=== PATIENT | male | born 1975 ===

== ENCOUNTER 2020-11-03 17:09 | Inpatient (IN) | payer BC ==
[~2020-11-03] VITALS: Ht 175.3 cm; Wt 81.1 kg
[2020-11-03 19:17] VITALS: BP 134/65
[2020-11-03] MEDS ORDERED: NS 1,000 ML IV SCH (19:20)
[2020-11-03] MEDS ORDERED: NS 1,000 ML IV ONE (19:20)
[2020-11-03] MEDS ORDERED: SODIUM BICARBONATE 8.4% INJ 50 ML SYRINGE IV SCH (19:20)
--- NOTE | 2020-11-03 19:48 | REPVR ---
PROCEDURE INFORMATION: Exam: XR Chest Exam date and time: 11/03/2020 7:40 PM Age: 45 years old Clinical indication: Other: Leukocytosis TECHNIQUE: Imaging protocol: XR of the chest. Views: 1 view. COMPARISON: No relevant prior studies available. FINDINGS: Lungs: Lungs are diffusely hypoexpanded. No evidence of pulmonary edema. Airspace opacities at the lateral right lung base are suspected and there may be similar ill-defined opacities at the left lung base. Pleural spaces: No pleural effusion. No pneumothorax. Heart/Mediastinum: Heart and mediastinal contours are normal, given the degree of inflation. Bones/joints: Osseous structures show no concerning abnormality. Soft tissues: No asymmetry of the extrathoracic soft tissues. IMPRESSION: Hypoexpanded lungs, with suggestion of right basilar and possibly left basilar pneumonia Electronically signed by: David Blake On 11/03/2020 19:48:09 PM
[2020-11-03 19:51] LABS: ABG BASE EXCESS -11.1 (-2.0-2.0); ABG HCO3 15.3 MEQ/L (22.0-26.0); ABG O2 SATURATION 94.3 % (95.0-99.0); ABG PARTIAL PRESSURE CO2 36.3 mmHg (35.0-45.0); ABG PARTIAL PRESSURE O2 81.9 mmHg (75.0-100.0); ABG STANDARD HCO3 15.6 MEQ/L (22.0-26.0); ABG TOTAL CO2 16.4 MEQ/L (22.0-29.0)
[2020-11-03 19:52] LABS: ABG pH (ARTERIAL) 7.243 UNITS (7.350-7.450)
[2020-11-03] MEDS ORDERED: TRAZ1TAB10 PO (19:58)
[2020-11-03] MEDS ORDERED: ROPI0.5T3 PO (19:58)
[2020-11-03] MEDS ORDERED: INSULADS INJ (19:58)
[2020-11-03] MEDS ORDERED: TREL1AER PO (19:58)
[2020-11-03] MEDS ORDERED: ATOR40TA75 PO (19:58)
[2020-11-03] MEDS ORDERED: GABA600T4 PO (19:58)
[2020-11-03] MEDS ORDERED: ESZO1TAB6 PO (19:58)
[2020-11-03] MEDS ORDERED: OXYC-517 PO (19:58)
[2020-11-03] MEDS ORDERED: INSUHUMDS SC (19:58)
[2020-11-03] MEDS ORDERED: BUPR15TA PO (19:58)
[2020-11-03] MEDS ORDERED: LEXA1TAB2 PO (19:58)
[2020-11-03] MEDS ORDERED: BACL1TAB9 PO (19:58)
[2020-11-03] MEDS ORDERED: LEVO100T5 PO (19:58)
[2020-11-03 20:00] VITALS: BP 137/69
[2020-11-03] MEDS: INSULIN REGULAR IN 0.9 % NACL 100 UNIT in IV 1 EA IV SCH ×2 (20:10)
[2020-11-03 20:12] LABS: VENOUS BASE EXCESS -13.9 (-2.0-2.0); VENOUS HCO3 13.7 MEQ/L (23.0-27.0); VENOUS O2 SATURATION 89.1 % (60.0-80.0); VENOUS PARTIAL PRESSURE CO2 37.9 mmHg (38.0-50.0); VENOUS PARTIAL PRESSURE O2 65.2 mmHg (30.0-50.0); VENOUS PH 7.175 UNITS (7.330-7.430); VENOUS STANDARD HCO3 13.6 MEQ/L; VENOUS TOTAL CO2 14.8 MEQ/L (24.0-28.0)
[2020-11-03 20:19] LABS: BASO % 0.1 % (0.0-1.0); HEMATOCRIT 34.7 % (42.0-52.0); HEMOGLOBIN 12.1 g/dl (13.5-17.5); LYMPH # 0.9 10^3/uL (1.5-5.0); LYMPH % 5.1 % (24.0-44.0); MEAN CORPUSCULAR HEMOGLOBIN 34.4 pg (27.0-33.0); MEAN CORPUSCULAR HGB CONC 34.9 g/dl (32.0-36.5); MEAN CORPUSCULAR VOLUME 98.6 fl (80.0-96.0); MONO # 0.5 10^3/uL (0.0-0.8); MONO % 2.6 % (2.0-8.0); NEUTROPHILS # 15.6 10^3/uL (1.5-8.5); NEUTROPHILS % 91.4 % (36.0-66.0); PLATELET COUNT, AUTOMATED 196 10^3/uL (150-450); RED BLOOD COUNT 3.52 10^6/uL (4.30-6.10); WHITE BLOOD COUNT 17.1 10^3/uL (4.0-10.0)
[2020-11-03] MEDS ORDERED: VANCOMYCIN HCL 500 MG in D5W MINI-BAG PLUS 100 ML IV ONE (20:25)
[2020-11-03 20:56] LABS: ACETONE/KETONE 40.71 MG/DL (<2.81); CALCIUM LEVEL 6.8 MG/DL (8.5-10.1); CREATININE FOR GFR 5.28 MG/DL (0.70-1.30); GLOMERULAR FILTRATION RATE 12.5 (>60); HEMOGLOBIN A1c 8.2 %; PHOSPHORUS LEVEL 4.2 MG/DL (2.5-4.9); POTASSIUM SERUM 3.8 MEQ/L (3.5-5.1)
[2020-11-03 21:00] VITALS: BP 148/67
[2020-11-03] MEDS ORDERED: POTASSIUM CHLORIDE INJ 30 MEQ in NS 1,000 ML IV SCH (21:05)
--- NOTE | 2020-11-03 21:06 | HPEPDOC ---
[facility] Medical History & Physical Date of Admission Nov 03, 2020 Date of Service: Nov 03, 2020 History and Physical CHIEF COMPLAINT: Transfer from [facility] for severe DKA to ICU HISTORY OF PRESENT ILLNESS: 45-year-old male type I diabetic transfer from [facility] to the ICU with severe diabetic ketoacidosis in the setting of possible aspiration pneumonia. History was obtained from patient's as well as documentation from [facility]. I'm unable to obtain history from the patient himself due to his men zbigniew status currently. [facility] requested transfer of this patient due to severe diabetic ketoacidosis he presented to [facility] traveling with his at [place] with progressively worsening nausea and vomiting and increasing confusion. According to his his nausea and vomiting started 5 days ago and have become progressively worse his sugars have been uncontrolled at home measuring high on the reader but they did not pursue medical help starting today in the morning he became progressively more confused disoriented didn't know where he was and so they decided to bring him to the hospital. At [facility] there is a large number of critical lab values and findings his initial ABG was pH 7.17 PCO2 25.9 he was found to have acute kidney injury creatinine 4.7 without history of chronic kidney disease. He was felt to have leukocytosis 18 checks x-ray was suggestive of right lower lobe opacity according to his his pain noted to choke on his food and appears to be aspirating more frequently over the past week this is new he does not have a history of pneumonia recently no history of aspiration pneumonia. According to his he does not have a history of diabetic ketoacidosis and was not admitted in the past the hospital for similar problem. At [facility] his lactate was 4.0. His anion gap was 35. His blood sugar was 1387. He was given 1 dose of cefepime and Flagyl there insulin drip was started and he was given a liter bolus of normal saline. Levemir his vitals blood pressure was 148/74. Heart rate was 96. Respirations 24. Temperature was 97. MattMclain endorsed the patient to Dr Swanson who accepted the transfer. Patient was admitted to the ICU for critical workup and management. I spoke to his Theresa and updated her as well. 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 REVIEW OF SYSTEMS: Patient is too lethargic to answer my questions unable to obtain review of systems HOME MEDICATIONS: Please see below. PHYSICAL EXAMINATION: Constitutional: Lethargic difficult to arouse wakes up briefly is able to answer a few questions and falls back asleep. Does not appear to be in distress. Protecting his airway. ENT: Sclera is nonicteric Respiratory: Lungs rhonchi bilaterally throughout lung hudson. No use of accessory muscles. Cardiovascular: Normal rate and rhythm Gastrointestinal: Abdomen is soft, non distended, non tender, BS present. Musculoskeletal: No lower extremity edema. Neurologic: No focal neurological deficit. Mental Status: A&O x1 knows his name only Skin: No visible rashes LABORATORY DATA: See below. IMAGING: See chart MICROBIOLOGY: Please see below. ASSESSMENT/PLAN 45-year-old male type I diabetic transfer from [facility] to the ICU with severe diabetic ketoacidosis in the setting of possible aspiration pneumonia. # Severe Diabetic ketoacidosis in patient with type 1 diabetes: - Admit to ICU for insulin drip per protocol. - K 3.8 initially. Start with NS with 30meqK per 1L and adjust fluids and potassium per protocol. - AG initially 35 at [facility] now improved to 21. Blood sugar initially 1387 at [facility] now 996. Monitor BMP q2h. - Transition to subq insulin and start diabetic diet per protocol. Currently NPO - s/p 2L bolus in at [facility], - Initial ABG showing pH 7.24 (improved form [facility] pH was 7.17), Trend ABGs. Give bicarb. - Possibly triggered by underlying pneumonia # Pneumonia: possibly aspiration. Per has been coughing up and aspirating more frequently over the past week no history of aspiration pneumonia. We'll treat with broad-spectrum IV vancomycin and Zosyn. Fu BCx. UCx. Sputum Cx. Incentive spirometry. Aspiration precautions. Follow-up Legionella and strep pneumo. Follow-up MRSA PCR screen. # Acute kidney injury: Cr 5.28. No history of kidney disease according to his . Likely related to his DKA. IV fluids. Renal ultrasound. I consulted nephrology and Dr. Suggs and appreciate his recommendations. Carver catheter and monitor urine output. # Hypothyroidism: Hold oral Synthroid. Half dose IV Synthroid until tolerating PO. # Restart home medications for chronic medical problems once no longer NPO. # DVT prophylaxis: Heparin Critical care time 45 minutes A Yousef Hospitalist Vital Signs Vital Signs Date Time Temp Pulse Resp B/P (MAP) Pulse Ox O2 Delivery O2 Flow Rate FiO2 11/03/20 20:00 84 22 137/69 (91) 92 Nasal Cannula 4.0 11/03/20 19:17 97.4 Laboratory Data Labs 24H Laboratory Tests 2 11/03/20 19:37: Blood Gas Bicarbonate Standard 15.6L, Arterial Blood pH 7.243*L, Arterial Blood Partial Pressure CO2 36.3, Arterial Blood Partial Pressure O2 81.9, Arterial Blood Total CO2 16.4L, Arterial Blood HCO3 15.3L, Arterial Blood Base Excess - 11.1L, Arterial Blood Oxygen Saturation 94.3L 11/03/20 19:59: Blood Gas Bicarbonate Standard 13.6, Immature Granulocyte % (Auto) 0.8, Neutrophils (%) (Auto) 91.4H, Lymphocytes (%) (Auto) 5.1L, Monocytes (%) (Auto) 2.6, Eosinophils (%) (Auto) 0.0, Basophils (%) (Auto) 0.1, Neutrophils # (Auto) 15.6H, Lymphocytes # (Auto) 0.9L, Monocytes # (Auto) 0.5, Eosinophils # (Auto) 0.0, Basophils # (Auto) 0.0, Nucleated Red Blood Cells % (auto) 0.0, Bedside Glucose Confirm (Misc) 996*H, Blood Gas Puncture Site UNKNOWN, Venous Blood pH 7.175L, Venous Blood Partial Pressure CO2 37.9L, Venous Blood Partial Pressure O2 65.2H, Venous Blood Total Carbon Dioxide 14.8L, Venous Blood HCO3 13.7L, Venous Blood Oxygen Saturation 89.1H, Venous Blood Base Excess -13.9L, Anion Gap 21H, Glomerular Filtration Rate 12.5L, Estimated Mean Plasma Glucose 189H, Hemoglobin A1c 8.2, Lactic Acid Level 2.8*H, Calcium Level 6.8L, Phosphorus Level 4.2, B-Hydroxybutyrate 40.71H CBC/BMP Laboratory Tests 11/03/20 19:59 Microbiology Microbiology 11/03/20 Blood Culture, Received Pending Home Medications Scheduled Atorvastatin Calcium (Atorvastatin Calcium) 40 Mg Tablet, 40 MG PO QPM Baclofen (Baclofen) 20 Mg Tablet, 20 MG PO QID Bupropion HCl (Wellbutrin Sr) 150 Mg Tab.sr.12h, 150 MG PO DAILY Escitalopram Oxalate (Lexapro) 20 Mg Tablet, 20 MG PO BID Eszopiclone (Eszopiclone) 3 Mg Tablet, 3 MG PO QHS Fluticasone/Umeclidin/Vilanter (Trelegy Ellipta 100-62.5-25) 1 Each Blst.w.dev, 1 PUFF PO DAILY Gabapentin (Gabapentin) 600 Mg Tablet, 600 MG PO QID Insulin Glargine (Lantus) 100 Unit/1 Ml Vial, 25 UNIT INJ BID Insulin Human Lispro (Humalog) 100 Unit/1 Ml Vial, 1 DOSE SC TID PER SLIDING SCALE Levothyroxine Sodium (Levothyroxine Sodium) 100 Mcg Tablet, 100 MCG PO DAILY Ropinirole HCl (Ropinirole HCl) 0.5 Mg Tablet, 0.5 MG PO BID Trazodone HCl (Trazodone HCl) 50 Mg Tablet, 50 MG PO QHS Allergies Coded Allergies: Penicillins (Verified Allergy, Unknown, constipation, 11/03/20) per [facility] h & P lisinopril (Verified Allergy, Unknown, renal faliure, 11/03/20) [facility] A-FIB/CHADSVASC A-FIB History Current/History of A-Fib/PAF?: No MILLER VILLEGAS MD Nov 03, 2020 21:06
[2020-11-03 21:34] LABS: VENOUS BASE EXCESS -12.3 (-2.0-2.0); VENOUS HCO3 14.8 MEQ/L (23.0-27.0); VENOUS O2 SATURATION 99.2 % (60.0-80.0); VENOUS PARTIAL PRESSURE CO2 38.2 mmHg (38.0-50.0); VENOUS PARTIAL PRESSURE O2 250.6 mmHg (30.0-50.0); VENOUS PH 7.207 UNITS (7.330-7.430); VENOUS STANDARD HCO3 14.9 MEQ/L
[2020-11-03] MEDS ORDERED: VANCOMYCIN HCL 1,000 MG, VIAL MATE ADAPTER 1 EACH in NS 250 ML IV ONE (21:45)
[2020-11-03] MEDS ORDERED: VANCOMYCIN INTERMITTENT/PULSE DOSING BY CLINICAL PHARMACIST PER DOSING PROTOCOL XX SCH (21:45)
[2020-11-03 22:00] VITALS: BP 146/66
[2020-11-03 22:02] LABS: PHOSPHORUS LEVEL 3.5 MG/DL (2.5-4.9)
--- NOTE | 2020-11-03 22:18 | REPVR ---
PROCEDURE INFORMATION: Exam: US Retroperitoneal Limited, Kidneys Exam date and time: 11/03/20 (9:10pm) Age: 45 years old Clinical indication: Acute renal failure. HOWARD. TECHNIQUE: Imaging protocol: Real-time ultrasound of the retroperitoneum with image documentation. Examination was focused on the kidneys. COMPARISON: No relevant prior studies available FINDINGS: Right kidney: No stones. No hydronephrosis. Measures 11.9 cm in length. Left kidney: No stones. No hydronephrosis. Measures 12.1 cm in length. Urinary bladder: Carver in place. Bladder not distended. Other findings: Trace ascites in the right flank area. IMPRESSION: Normal renal size, bilaterally. No hydronephrosis. No upper tract stones are seen. Carver catheter in place. Trace fluid in the right flank region. Electronically signed by: Anna Omer On 11/03/2020 22:17:22 PM
[2020-11-03 22:46] LABS: CALCIUM LEVEL 6.6 MG/DL (8.5-10.1); CREATININE FOR GFR 5.34 MG/DL (0.70-1.30); GLOMERULAR FILTRATION RATE 12.3 (>60); POTASSIUM SERUM 3.6 MEQ/L (3.5-5.1)
[2020-11-03] MEDS ORDERED: LORazepam 2 MG/ML VIAL IV STA (23:20)
[2020-11-03] MEDS ORDERED: LORazepam 2 MG/ML VIAL As Ordered ONE (23:24)
[2020-11-03] MEDS ORDERED: HEPARIN SOD (PORCINE) 5000UNITS/ML 1ML VIAL/SYRINGE As Ordered ONE (23:33)
[2020-11-03] MEDS ORDERED: MIDAZOLAM INJ 2MG/2ML VIAL (J2250 PER 1MG) As Ordered ONE (23:40)
[2020-11-03] MEDS ORDERED: MIDAZOLAM INJ 2MG/2ML VIAL (J2250 PER 1MG) IV STA (23:42)
[2020-11-04] VITALS (28 sets, daily range): BP systolic 98–161; BP diastolic 56–75
[2020-11-04 00:16] LABS: CALCIUM LEVEL 6.6 MG/DL (8.5-10.1); CREATININE FOR GFR 5.48 MG/DL (0.70-1.30); POTASSIUM SERUM 3.7 MEQ/L (3.5-5.1)
[2020-11-04] MEDS ORDERED: NS 1,000 ML IV SCH (00:35)
[2020-11-04] MEDS: PIPERACILLIN/TAZOBACTAM SOD 2.25 GM in D5W MINI-BAG PLUS 50 ML IV SCH ×5 (00:43→23:53)
[2020-11-04] MEDS: CALCIUM GLUCONATE 1,000 MG, VIAL MATE ADAPTER 1 EACH in NS 100 ML IV SCH ×2 (00:54→01:45)
[2020-11-04 01:00] LABS: CALCIUM LEVEL 6.5 MG/DL (8.5-10.1); CREATININE FOR GFR 5.64 MG/DL (0.70-1.30); GLOMERULAR FILTRATION RATE 11.6 (>60); MAGNESIUM LEVEL 2.5 MG/DL (1.8-2.4); PHOSPHORUS LEVEL 3.1 MG/DL (2.5-4.9); POTASSIUM SERUM 3.2 MEQ/L (3.5-5.1)
[2020-11-04] MEDS ORDERED: KCL 20MEQ IN STERILE WATER 100ML As Ordered ONE (01:12)
[2020-11-04] MEDS ORDERED: KCL 20MEQ IN 100ML SWI (KRUN) 20 MEQ in IV 1 EA IV ONE ×8 (01:15→10:00)
[2020-11-04] MEDS: INSULIN REGULAR IN 0.9 % NACL 100 UNIT in IV 1 EA IV SCH ×2 (02:50)
[2020-11-04 02:52] LABS: KETONE, URINE AUTO TRACE mg/dL (NEGATIVE)
[2020-11-04 03:02] LABS: CREATININE,RANDOM URINE 37.2 MG/DL
[2020-11-04 03:34] LABS: VENOUS BASE EXCESS -9.9 (-2.0-2.0); VENOUS HCO3 18.3 MEQ/L (23.0-27.0); VENOUS O2 SATURATION 94.2 % (60.0-80.0); VENOUS PARTIAL PRESSURE CO2 49.8 mmHg (38.0-50.0); VENOUS PH 7.184 UNITS (7.330-7.430); VENOUS STANDARD HCO3 16.6 MEQ/L; VENOUS TOTAL CO2 19.9 MEQ/L (24.0-28.0)
[2020-11-04] MEDS: CALCIUM GLUCONATE 1,000 MG in NS 100 ML IV SCH ×2 (04:36→05:27)
[2020-11-04 04:52] LABS: ACETONE/KETONE 1.07 MG/DL (<2.81); CREATININE FOR GFR 4.8 MG/DL (0.70-1.30); MAGNESIUM LEVEL 2.4 MG/DL (1.8-2.4); PHOSPHORUS LEVEL 2.3 MG/DL (2.5-4.9); POTASSIUM SERUM 3.7 MEQ/L (3.5-5.1); VANCOMYCIN RANDOM 18.9 UG/ML
[2020-11-04] MEDS: INSULIN IV RATE CHANGE DOCUMENTATION ML/HR XX SCH ×7 (05:08→14:20)
[2020-11-04 05:13] LABS: HEMATOCRIT 34.2 % (42.0-52.0); HEMOGLOBIN 12.6 g/dl (13.5-17.5); MEAN CORPUSCULAR HEMOGLOBIN 34.5 pg (27.0-33.0); MEAN CORPUSCULAR VOLUME 93.7 fl (80.0-96.0); PLATELET COUNT, AUTOMATED 186 10^3/uL (150-450); RED BLOOD COUNT 3.65 10^6/uL (4.30-6.10); WHITE BLOOD COUNT 12.1 10^3/uL (4.0-10.0)
[2020-11-04 05:16] LABS: MEAN CORPUSCULAR HGB CONC 36.8 g/dl (32.0-36.5)
[2020-11-04] MEDS ORDERED: SODIUM PHOSPHATE INJ 15 MMOL in D5W 250 ML IV ONE (06:00)
[2020-11-04 07:18] LABS: VENOUS BASE EXCESS -6.5 (-2.0-2.0); VENOUS HCO3 20.9 MEQ/L (23.0-27.0); VENOUS O2 SATURATION 91.6 % (60.0-80.0); VENOUS PARTIAL PRESSURE CO2 49.4 mmHg (38.0-50.0); VENOUS PARTIAL PRESSURE O2 67.9 mmHg (30.0-50.0); VENOUS PH 7.245 UNITS (7.330-7.430); VENOUS STANDARD HCO3 19.1 MEQ/L; VENOUS TOTAL CO2 22.5 MEQ/L (24.0-28.0)
[2020-11-04] MEDS ORDERED: DEXTROSE 50% 50 ML SYRINGE As Ordered ONE (07:59)
[2020-11-04] MEDS ORDERED: GLUCAGON INJ 1MG VIAL SC PRN (08:00)
[2020-11-04] MEDS ORDERED: GLUCOSE 4GM CHEW TABLET PO PRN (08:00)
[2020-11-04] MEDS ORDERED: VANCOMYCIN HCL 750 MG, VIAL MATE ADAPTER 1 EACH in NS 250 ML IV SCH (08:00)
[2020-11-04] MEDS ORDERED: D5W/0.45% SODIUM CHLORIDE 1,000 ML IV SCH (08:05)
[2020-11-04] MEDS: DEXTROSE 50% 50 ML SYRINGE IV PRN (08:23)
[2020-11-04 08:26] LABS: CALCIUM LEVEL 7.8 MG/DL (8.5-10.1); CREATININE FOR GFR 3.89 MG/DL (0.70-1.30); GLOMERULAR FILTRATION RATE 17.8 (>60); MAGNESIUM LEVEL 2.3 MG/DL (1.8-2.4); PHOSPHORUS LEVEL 2.6 MG/DL (2.5-4.9); POTASSIUM SERUM 3.7 MEQ/L (3.5-5.1)
[2020-11-04] MEDS ORDERED: CALCIUM GLUCONATE 1,000 MG in NS 100 ML IV ONE (08:30)
--- NOTE | 2020-11-04 08:30 | RO ---
OPERATIVE NOTE DATE OF OPERATION: 11/03/2020 PREOPERATIVE DIAGNOSES: 1. Diabetic ketoacidosis. 2. Acute anuric renal failure. POSTOPERATIVE DIAGNOSES: 1. Severe diabetic ketoacidosis. 2. Acute anuric renal failure. PROCEDURE: Placement of central venous catheter for dialysis access. CONSENT: For the procedure obtained from the patient's over the phone. Benefits and risks of the procedure including bleeding, infection, and nerve injury were explained to the patient, and explained that we need to emergently do a continuous veno-venous hemodiafiltration (CVVHDF) on this patient. She agreed for the dialysis catheter placement and initiation of CVVHDF. INDICATIONS FOR PROCEDURE: Severe diabetic ketoacidosis and acute anuric renal failure. SURGEON: Jennifer Suggs MD HEALTHCARE RISK CONTROL CONSULTANT: ANESTHESIA: 2% Lidocaine local DESCRIPTION OF PROCEDURE: A timeout was performed confirming the patient, location of the procedure, and the right femoral vein. The patient was prepped and draped in the usual sterile fashion. A 13-Welsh Trialysis catheter was placed in the right common femoral vein via Seldinger technique. Venous blood was aspirated from three ports and the lines were flushed with saline. Dialysis lines were locked with heparin and they were capped. COMPLICATIONS: None. ESTIMATED BLOOD LOSS: 5 mL. DISPOSITION: The patient tolerated the procedure well. CVVHDF was initiated after the procedure. Catheter to remain during the CVVHDF. The patient was agitated and he needed administration of Ativan and Versed during the procedure. [facility]
--- NOTE | 2020-11-04 08:47 | CR ---
CONSULTATION DATE: 11/04/2020 REQUESTING PHYSICIAN: Vicente Schmitz MD. CONSULTING PHYSICIAN: Jennifer Suggs MD. REASON FOR CONSULTATION: Management of acute renal failure in this patient with severe diabetic ketoacidosis. HISTORY OF PRESENT ILLNESS: Of note, history was obtained from the patient's chart and from the medical team. The patient himself is not able to provide any medical history. Julio Hollis is a 45-year-old type 1 diabetic who was transferred to our hospital from [facility] because of severe DKA and anuric acute renal failure. The patient was having worsening nausea, vomiting, and increasing confusion. The nausea and vomiting started about five days ago and progressively got worse. His sugars were uncontrolled at home and his glucose meter was reading at high; but despite all these issues, the patient did not seek any medical help. Once he started getting confused and disoriented, he was brought to [facility] where he was found to have a diabetic ketoacidosis with an initial ABG pH of 7.17. His creatinine on arrival was 4.7. He was septic with a leukocytosis of 18 and possible right lower lobe opacity on the imaging. The patient was directly admitted to [facility] ICU. His blood glucose level was 1387. Nephrology service consult was requested for patient with severe DKA and acute anuric renal failure. The patient needed my immediate attention. I came to the ICU and saw the patient on the night of 11/03/2020. The patient was very restless and agitated. He had started to wheeze with all the IV fluids that he had received. He was getting IV insulin drip. All the labs and images were reviewed. The patient's current condition was discussed with myself with his as well and further details are mentioned in my note below. PAST MEDICAL HISTORY: 1. Type 1 diabetes. 2. Diabetic neuropathy. 3. Hyperlipidemia. 4. Depression and anxiety. 5. Hypothyroidism. 6. Cleft palate in the past. PAST SURGICAL HISTORY: Status post cleft palate surgery. ALLERGIES: The patient is allergic to LISINOPRIL AND PENICILLIN. FAMILY HISTORY: Unknown family history. SOCIAL HISTORY: According to his , the patient uses marijuana. No history of other drug abuse or alcohol abuse. There is no history of smoking. REVIEW OF SYSTEMS: I was unable to review any review of systems. He was restless and agitated, and he does not follow commands. PHYSICAL EXAMINATION: GENERAL: The patient is lying in bed. Opens eyes on loud commands. VITAL SIGNS: Temperature is 97.4 degrees Fahrenheit, blood pressure 137/69, pulse 84, respiratory rate 22, saturating 92% on nasal cannula at 4 liters. HEAD/NECK: Pupils are equally round and reactive to light. Mucous membranes are dry. Neck is supple with mildly elevated JVD. CARDIOVASCULAR: S1, S2. Regular rate. No edema of the bilateral lower extremities. RESPIRATORY: The patient has wheezing bilaterally from the lung bases up to the mid lung zones. Mild inspiratory crackles are also noted. ABDOMEN: Soft. Positive bowel sounds. Nontender. GENITOURINARY: He has an indwelling Carver catheter at this time. MUSCULOSKELETAL: No clubbing or cyanosis. Pulses are 2+. OPERATIONS TECHNICIAN: The patient is obtunded and agitated at this time. SKIN: No rashes or ulcers are noted. LABORATORY REVIEW: CBC showed a WBC of 17.1, hemoglobin 12.1, platelets 196,000. Initial ABG pH was 7.23 in our hospital, pCO2 of 36, pO2 of 81, bicarb of 15.6. O2 saturation 94.3%. BMP on arrival showed sodium 125, potassium 3.8, chloride 89, bicarb 15, BUN 102, creatinine 5.2, glucose of 996, A1c of 8.2. Lactic acid was 2.8. Osmolality was 360. Calcium 6.8. Procalcitonin is pending. Beta-hydroxybutyrate is 14.7. MICROBIOLOGY: Cultures are pending. IMAGING DATA: A chest x-ray was done, which showed hyperexpanded lungs with suggestion of right basilar and possible left basilar pneumonia. Renal ultrasound was done, which showed normal size bilaterally. No hydronephrosis. Carver catheter was in place. HOME MEDICATIONS: The patient's home medications include 1. Lipitor 40 mg daily. 2. Baclofen 20 mg p.o. three times a day. 3. Wellbutrin 150 mg p.o. daily. 4. Lexapro 20 mg p.o. twice a day. 5. Zopiclone 3 mg p.o. q. h.s. 6. Trelegy Ellipta one puff p.o. daily. 7. Gabapentin 600 mg p.o. four times a day. 8. Insulin Lantus 25 units twice a day. 9. Insulin lispro sliding scale. 10. Levothyroxine 100 mcg p.o. daily. 11. Ropinirole 0.5 mg p.o. twice a day. 12. Trazodone 50 mg p.o. q. h.s. CURRENT INPATIENT MEDICATIONS: The patient's medications were all reviewed by myself and that includes multiple normal saline boluses. He was getting normal saline with Mamie Ciel running at 400 mL/hour, which I stopped because of the patient's wheezing. He has been started on Zosyn 2.25 g IV q. 6 hourly. Insulin drip is running. He was also given 1 g of vancomycin IV. Levothyroxine 50 mcg IV daily, Protonix 40 mg IV daily, and one amp of 50 mEq of IV bicarb bolus was given. ASSESSMENT: This is a 45-year-old male with a history of type 2 diabetes, depression, anxiety, and hypothyroidism admitted this time with severe sepsis, severed diabetic ketoacidosis, and acute anuric renal failure. PLAN: 1. Acute anuric renal failure. The patient has diabetic ketoacidosis. I would not wait for the patient's renal recovery. He is critically ill. I urgently got in touch with his and got consent for dialysis catheter placement. A right groin catheter was inserted with the help of staff in the intensive care unit (ICU). The procedure note is dictated separately. 2. Continuous veno-venous hemodiafiltration (CVVHDF) will be started tonight, even though the patient's blood pressures are good, but there is high risk of cerebral edema and seizures because of acute shift of electrolytes and acid base with regular HD; so CVVHDF is a safer modality in the setting of diabetic ketoacidosis. If his blood pressures allow, I would remove some fluid as well because the patient has started wheezing with all the IV fluids that we have given him. I am hopeful that with the improvement in his sepsis and diabetic ketoacidosis, the patient's renal function should recover over the next few days. 3. Diabetic ketoacidosis. The patient is getting IV fluids and IV insulin drip. I believe some infection has tipped him over into ketoacidosis. Continue the empiric antibiotic at this time. IV fluids have been stopped because the patient is anuric and was started to get wheezy. 4. Hyponatremia. The patient has pseudohyponatremia. Sodium level should get better once his glucose levels get better. 5. High anion gap metabolic acidosis including diabetic ketoacidosis, lactic acidosis, and renal failure with inability of the patient to generate any bicarb. No need for further IV bicarbonate administration. Acidosis will resolve with hemodialysis now. 6. Sepsis with possible aspiration pneumonitis. The patient has received IV fluid hydration. He is empirically on vancomycin and Zosyn that should cover for possible aspiration pneumonitis as well. 7. Hypothyroidism. Continue half the dose of oral levothyroxine as IV, which is 50 mcg IV daily. 8. History of depression and anxiety. The patient is very obtunded and lethargic. I will not give any antidepressants or any anxiety medications. He will actually need Versed p.r.n. for agitation during hemodialysis. 9. Hypocalcemia or impending hypokalemia. All the electrolytes will be repleted according to CVVHDF protocol. Thank you for involving me in the care of this patient. I shall be happy to follow the patient along with you tomorrow morning as well. The plan of care was discussed with the admitting physician, Dr. Vicente Schmitz, and with the patient's over the phone, and with the patient's nursing staff in the ICU. CRITICAL CARE TIME: The total critical care time spent in the management of this patient tonight in the intensive care unit (ICU), excluding all the procedures, was two hours. [facility]
[2020-11-04] MEDS ORDERED: SODIUM CHLORIDE 0.9% INJ 10 ML SYR IV PRN (08:55)
[2020-11-04] MEDS ORDERED: PANTOPRAZOLE 40MG VIAL (C9113 PER 1) IV SCH (09:00)
[2020-11-04] MEDS: HEPARIN SOD (PORCINE) 5000UNITS/ML 1ML VIAL/SYRINGE SC SCH ×2 (09:09→20:30)
[2020-11-04] MEDS: LEVOTHYROXINE 100MCG (0.1MG) VIAL IV SCH (09:10)
[2020-11-04] MEDS ORDERED: KCL 40MEQ IN D5/0.45NS 1000ML 1,000 ML IV SCH (09:40)
[2020-11-04] MEDS ORDERED: HALOPERIDOL 5MG/ML VIAL (J1630 PER 1) IV PRN (09:55)
[2020-11-04] MEDS ORDERED: LORazepam 2 MG/ML VIAL IV PRN (10:10)
--- NOTE | 2020-11-04 10:13 | IPNPDOC ---
Subjective Date Seen The patient was seen on 11/04/20. Subjective Chief Complaint/HPI Restless and agitated, rolling around in bed. Objective Physical Examination General Exam: Positive: Other (restless and agitated, did respond when i called his name. ) Eye Exam: Positive: PERRLA, Conjunctiva & lids normal ENT Exam: Positive: Other ENT (dried blood in the oral cavity and nares. Dried secretions int eh nose and mouth. ) Neck Exam: Positive: Supple; Negative: JVD, thyromegaly Chest Exam: Positive: Normal air movement, Other (bilateral basal crackles. 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 He was admitted for DKA, severe high anion gap metabolic acidosis, anuric HOWARD, Acute metabolic encephalopathy, aspiration pneumonia DKA sugars down to 43 this am will start on 5% dex/ 0.45 NS will resume insulin infusion as per scale. will try to maintain sugars in the 200 range. continue FS q 1 hours and basic q4 hours. Anuric HWOARD On CRRT nephro following and managing the electrolytes. Acute metabolic encephalopathy due to the DKA, extremely high sugars of over 1300 on presentation to other hospital and uremia will give haldol 2 mg iv q 6 hours prn. Morphine for pain. Aspiration pneumonia continue Zosyn MRSA pcr negative so stopped vancomycin. Follow-up Legionella and strep pneumo. Hypothyroidism: Half dose IV Synthroid until tolerating PO. COPD We will replace trelegy with DuoNebs and budesonide and Perforomist Chronic back pain and neuropathy Patient is on high-dose of baclofen at home He may go through withdrawals now that he has not had it for 3 days May have to give Precedex if remains agitated. Anxiety and depression He is on buspirone, Lexapro, trazodone, Eszopiclone at home Will need to be restarted when patient awake alert and eating orally. Plan/VTE VTE Prophylaxis Ordered?: Yes VS, I&O, 24H, Fishbone Vital Signs/I&O Vital Signs Date Time Temp Pulse Resp B/P (MAP) Pulse Ox O2 Delivery O2 Flow Rate FiO2 11/04/20 07:00 79 126/58 (80) 97 Nasal Cannula 2.0 11/04/20 04:00 98.2 26 I&O- Last 24 Hours up to 6 AM 11/04/20 06:00 Intake Total 3288 ml Output Total 1146 ml Balance 2142 ml Laboratory Data 24H LABS Laboratory Tests 2 11/03/20 19:23: Bedside Glucose (Misc Panel) > 600*H 11/03/20 19:37: Blood Gas Bicarbonate Standard 15.6L, Arterial Blood pH 7.243*L, Arterial Blood Partial Pressure CO2 36.3, Arterial Blood Partial Pressure O2 81.9, Arterial Blood Total CO2 16.4L, Arterial Blood HCO3 15.3L, Arterial Blood Base Excess - 11.1L, Arterial Blood Oxygen Saturation 94.3L 11/03/20 19:59: Blood Gas Bicarbonate Standard 13.6, Immature Granulocyte % (Auto) 0.8, Neutrophils (%) (Auto) 91.4H, Lymphocytes (%) (Auto) 5.1L, Monocytes (%) (Auto) 2.6, Eosinophils (%) (Auto) 0.0, Basophils (%) (Auto) 0.1, Neutrophils # (Auto) 15.6H, Lymphocytes # (Auto) 0.9L, Monocytes # (Auto) 0.5, Eosinophils # (Auto) 0.0, Basophils # (Auto) 0.0, Nucleated Red Blood Cells % (auto) 0.0, Bedside Glucose Confirm (Misc) 996*H, Blood Gas Puncture Site UNKNOWN, Venous Blood pH 7.175L, Venous Blood Partial Pressure CO2 37.9L, Venous Blood Partial Pressure O2 65.2H, Venous Blood Total Carbon Dioxide 14.8L, Venous Blood HCO3 13.7L, Venous Blood Oxygen Saturation 89.1H, Venous Blood Base Excess -13.9L, Anion Gap 21H, Glomerular Filtration Rate 12.5L, Estimated Mean Plasma Glucose 189H, Hemoglobin A1c 8.2, Osmolality 360H, Lactic Acid Level 2.8*H, Calcium Level 6.8L, Phosphorus Level 4.2, Procalcitonin 7.65, B-Hydroxybutyrate 40.71H 11/03/20 20:59: Bedside Glucose (Misc Panel) > 600*H 11/03/20 21:28: Blood Gas Bicarbonate Standard 14.9, Venous Blood pH 7.207L, Venous Blood Partial Pressure CO2 38.2, Venous Blood Partial Pressure O2 250.6H, Venous Blood Total Carbon Dioxide 16.0L, Venous Blood HCO3 14.8L, Venous Blood Oxygen Saturation 99.2H, Venous Blood Base Excess -12.3L, Anion Gap 21H, Glomerular Filtration Rate 12.3L, Calcium Level 6.6L, Phosphorus Level 3.5 11/03/20 22:00: Methicillin-Resist S.aureus DNA PCR NOT DETECTED 11/03/20 22:04: Bedside Glucose (Misc Panel) > 600*H 11/03/20 23:00: Bedside Glucose (Misc Panel) > 600*H 11/03/20 23:15: Anion Gap 19H, Glomerular Filtration Rate 12.0L, Calcium Level 6.6L 11/04/20 00:06: Anion Gap 13, Glomerular Filtration Rate 11.6L, Calcium Level 6.5L, Whole Blood Ionized Calcium 3.9L, Phosphorus Level 3.1, Magnesium Level 2.5H 11/04/20 00:15: Lactic Acid Followup at 4 Hours 3.0*H 11/04/20 01:04: Bedside Glucose (Misc Panel) > 600*H 11/04/20 02:06: Bedside Glucose (Misc Panel) 578*H 11/04/20 03:07: Bedside Glucose (Misc Panel) 514*H 11/04/20 03:23: Blood Gas Bicarbonate Standard 16.6, Venous Blood pH 7.184L, Venous Blood Partia l Pressure CO2 49.8, Venous Blood Partial Pressure O2 81.0H, Venous Blood Total Carbon Dioxide 19.9L, Venous Blood HCO3 18.3L, Venous Blood Oxygen Saturation 94.2H, Venous Blood Base Excess -9.9L 11/04/20 03:52: Nucleated Red Blood Cells % (auto) 0.0, Activated Partial Thromboplast Time 33.7, Anion Gap 10, Glomerular Filtration Rate 14.0L, Osmolality 322H, Calcium Level 7.0L, Phosphorus Level 2.3#L, Magnesium Level 2.4, Random Vancomycin Level 18.9, B-Hydroxybutyrate 1.07 11/04/20 04:00: Bedside Glucose (Misc Panel) 463H, Whole Blood Ionized Calcium 4.3L 11/04/20 05:06: Bedside Glucose (Misc Panel) 355H 11/04/20 06:04: Bedside Glucose (Misc Panel) 213H 11/04/20 06:59: Bedside Glucose (Misc Panel) 186H 11/04/20 07:04: Blood Gas Puncture Site UNKNOWN, Blood Gas Bicarbonate Standard 19.1, Venous Blood pH 7.245L, Venous Blood Partial Pressure CO2 49.4, Venous Blood Partial P ressure O2 67.9H, Venous Blood Total Carbon Dioxide 22.5L, Venous Blood HCO3 20.9L, Venous Blood Oxygen Saturation 91.6H, Venous Blood Base Excess -6.5L, Anion Gap 10, Glomerular Filtration Rate 17.8L, Osmolality 309H, Calcium Level 7.8L, Whole Blood Ionized Calcium 4.5, Phosphorus Level 2.6, Magnesium Level 2.3 11/04/20 07:56: Bedside Glucose (Misc Panel) 43L 11/04/20 08:01: Bedside Glucose (Misc Panel) 70 11/04/20 08:56: Bedside Glucose (Misc Panel) 119H CBC/BMP Laboratory Tests 11/03/20 19:59 11/03/20 21:28 11/03/20 23:15 11/04/20 00:06 11/04/20 03:52 11/04/20 07:04 Microbiology Microbiology 11/03/20 Blood Culture, Received Pending 11/03/20 Blood Culture, Received Pending 11/03/20 Urine Culture, Received Pending XENIA HERNANDEZ MD Nov 04, 2020 10:13
--- NOTE | 2020-11-04 10:30 | REP ---
INDICATION: Follow up Pneumonia,DKA. COMPARISON: 11/03/2020 TECHNIQUE: Portable AP view of the chest FINDINGS: The mediastinum and cardiac silhouette are stable. Patchy airspace disease involving the bilateral lung hudson (left greater than right) suggest multifocal pneumonia and correlation is required. No effusion. No pneumothorax. Skeletal structures intact. IMPRESSION: Patchy bilateral airspace disease suggesting multifocal pneumonia (left greater than right). <Electronically signed by William Barfield > 11/04/20 102
[2020-11-04] MEDS ORDERED: MORPHINE 2 MG/ML 1ML VIAL (J2270) IV ONE (11:15)
[2020-11-04] MEDS ORDERED: MORPHINE 2 MG/ML 1ML VIAL (J2270) IV PRN (11:35)
--- NOTE | 2020-11-04 11:56 | ECGEPIP ---
[facility] Test Date: 2020-11-03 Pat Name: OZZIE TREJO Department: Room: [place] [address] Gender: Male Editorial Manager: ICU : 1975 Requested By: MILLER Mendez Order Number: [id number] Reading MD: Rajinder Castillo Measurements Intervals [place] Rate: 83 P: 71 MD: 144 QRS: 67 QRSD: 82 T: 63 QT: 370 QTc: 434 Interpretive Statements Normal sinus rhythm Within normal limits. No prior ECG available for comparison at the time of interpretation. Electronically Signed on 11-04-2020 11:56:01 EDT by Rajinder Castillo
[2020-11-04 12:40] LABS: VENOUS BASE EXCESS -7.1 (-2.0-2.0); VENOUS HCO3 20.3 MEQ/L (23.0-27.0); VENOUS PARTIAL PRESSURE O2 58.6 mmHg (30.0-50.0); VENOUS PH 7.236 UNITS (7.330-7.430); VENOUS STANDARD HCO3 18.5 MEQ/L; VENOUS TOTAL CO2 21.8 MEQ/L (24.0-28.0)
[2020-11-04 12:43] LABS: CALCIUM LEVEL 7.3 MG/DL (8.5-10.1); CREATININE FOR GFR 3.32 MG/DL (0.70-1.30); GLOMERULAR FILTRATION RATE 21.3 (>60); MAGNESIUM LEVEL 2.1 MG/DL (1.8-2.4); POTASSIUM SERUM 4.5 MEQ/L (3.5-5.1)
[2020-11-04] MEDS ORDERED: INSULIN REGULAR IN 0.9 % NACL 100 UNIT in IV 1 EA IV SCH ×2 (12:43)
[2020-11-04] MEDS ORDERED: MIDAZOLAM INJ 2MG/2ML VIAL (J2250 PER 1MG) IV PRN (13:00)
[2020-11-04] MEDS ORDERED: KCL 20MEQ IN D5/0.45NS 1000ML 1,000 ML IV SCH (13:00)
[2020-11-04] MEDS ORDERED: CALCIUM GLUCONATE 1,000 MG, VIAL MATE ADAPTER 1 EACH in D5W MINI-BAG PLUS 100 ML IV ONE (14:00)
[2020-11-04 14:33] LABS: ALBUMIN 2.9 GM/DL (3.2-5.2); BILIRUBIN,DIRECT 0.4 MG/DL (0.0-0.2); BILIRUBIN,TOTAL 0.8 MG/DL (0.2-1.0)
[2020-11-04] MEDS ORDERED: SODIUM PHOSPHATE INJ 30 MMOL in D5W 500 ML IV ONE ×2 (16:00→21:00)
[2020-11-04] MEDS ORDERED: dexmedeTOMidine 200 MCG in IV 1 EA IV SCH (17:00)
[2020-11-04] MEDS ORDERED: HumaLOG INSULIN (NovoLOG) PER UNIT SC SCH (18:00)
[2020-11-04 18:02] LABS: HEMATOCRIT 31.7 % (42.0-52.0); HEMOGLOBIN 11.6 g/dl (13.5-17.5); MEAN CORPUSCULAR HGB CONC 36.6 g/dl (32.0-36.5); PLATELET COUNT, AUTOMATED 138 10^3/uL (150-450); RED BLOOD COUNT 3.41 10^6/uL (4.30-6.10); WHITE BLOOD COUNT 11.7 10^3/uL (4.0-10.0)
[2020-11-04] MEDS ORDERED: PROPOFOL 1,000 MG/100 ML VIAL As Ordered ONE (18:18)
[2020-11-04] MEDS ORDERED: SUCCINYLCHOLINE INJ 200 MG/10 ML VIAL (J0330) As Ordered ONE (18:18)
[2020-11-04 18:23] LABS: CALCIUM LEVEL 7.5 MG/DL (8.5-10.1); CREATININE FOR GFR 2.52 MG/DL (0.70-1.30); GLOMERULAR FILTRATION RATE 29.3 (>60); POTASSIUM SERUM 4.2 MEQ/L (3.5-5.1)
[2020-11-04] MEDS ORDERED: LEVEMIR (INSULIN DETEMIR) 1 UNITS/0.01ML SC ONE (18:30)
[2020-11-04] MEDS ORDERED: SUCCINYLCHOLINE INJ 200 MG/10 ML VIAL (J0330) IV STA (18:40)
[2020-11-04] MEDS ORDERED: propofoL 200 MG/20 ML VIAL IV ONE (18:40)
--- NOTE | 2020-11-04 18:47 | REP ---
INDICATION: intubation COMPARISON: None. TECHNIQUE: Portable AP view of the chest FINDINGS: Endotracheal tube 3.5 cm above the stone. Nasogastric tube courses below left hemidiaphragm. The mediastinum and cardiac silhouette are stable and within normal limits for portable technique. The lung hudson demonstrate diffuse bilateral airspace disease (left greater than right). No obvious effusion. No pneumothorax. Skeletal structures are intact. IMPRESSION: 1. Endotracheal tube and nasogastric tube in satisfactory position. 2. Bilateral airspace disease (left greater than right) similar to prior examination. <Electronically signed by William Barfield > 11/04/20 1000
[2020-11-04] MEDS: propofoL 1,000 MG in IV 1 EA IV SCH ×2 (19:09→23:19)
[2020-11-04] MEDS ORDERED: CALCIUM GLUCONATE 1,000 MG, VIAL MATE ADAPTER 1 EACH in NS 100 ML IV ONE (20:00)
[2020-11-04] MEDS ORDERED: IPRATROPIUM 0.5MG/ALBUTEROL 2.5MG INH SOL UD 3ML (DUONEB) NEB SCH (20:00)
[2020-11-04] MEDS: PANTOPRAZOLE 40MG VIAL (C9113 PER 1) IV SCH (20:30)
[2020-11-04] MEDS: CHLORHEXIDINE GLUCONATE 0.12 % 15ML UDC (PERIDEX ORAL RINSE) MT SCH (20:30)
[2020-11-04] MEDS: FORMOTEROL FUMARATE 20 MCG/2 ML INHALATION SOLUTION (PERFOROMIST) INH SCH (20:36)
[2020-11-04] MEDS: IPRATROPIUM 0.5MG/ALBUTEROL 2.5MG INH SOL UD 3ML (DUONEB) NEB SCH (20:36)
[2020-11-04] MEDS: BUDESONIDE 0.5 MG/2 ML INHALATION SUSPENSION INH SCH (20:36)
[2020-11-04 20:39] LABS: ABG BASE EXCESS -5.4 (-2.0-2.0); ABG HCO3 19.2 MEQ/L (22.0-26.0); ABG O2 SATURATION 97.6 % (95.0-99.0); ABG PARTIAL PRESSURE CO2 34.3 mmHg (35.0-45.0); ABG TOTAL CO2 20.3 MEQ/L (22.0-29.0); ABG pH (ARTERIAL) 7.366 UNITS (7.350-7.450)
--- NOTE | 2020-11-04 21:29 | IPN ---
NEPHROLOGY PROGRESS NOTE DATE: 11/04/2020 SUBJECTIVE: The patient was seen and examined at the bedside today morning in the ICU. Overnight events were noted. The patient was started on CVVHDF last night. His metabolic acidosis is resolving. His glucose levels are also better. He actually became hypoglycemic in the morning. His fluids were changed to dextrose containing fluids. Insulin drip rate is decreasing. The patient also started making urine. The patient was very restless and thrashing all over the bed so he was given Versed and he was also started on p.r.n. Morphine as well. OBJECTIVE: VITAL SIGNS: Temperature is 97.7 degrees Fahrenheit, blood pressure 146/67, pulse rate 78, respiratory rate of 22, saturating 98% on nasal cannula at 2 liters. INTAKE AND OUTPUT: Urine output recorded is around 50-60 mL an hour now since today morning. Fluid removal with CVVHDF is around 2 liters so far. Weight in the bed scale is 80.7 kg. PHYSICAL EXAMINATION: GENERAL APPEARANCE: The patient is laying in bed slightly agitated, turning around in the bed. HEAD AND NECK: Eyes are closed but he opens eyes on loud commands. Mucous membranes are moist. Neck is supple. There is no jugular venous distention. CARDIOVASCULAR: S1, S2, regular rate. EXTREMITIES: No edema of the bilateral lower extremities. RESPIRATORY: The patient has mild expiratory wheezing. Otherwise bilateral equal air entry. ABDOMEN: Soft, positive bowel sounds, nontender, no organomegaly. GENITOURINARY: He has an indwelling Carver catheter. Urine in the bag is getting more clear. MUSCULOSKELETAL: No clubbing, no cyanosis. Pulses are 2+. MARKETING SUPPORT SPECIALIST: The patient is agitated and restless. Otherwise he moves all extremities. LAB REVIEW: CBC showed a WBC count of 11.7, hemoglobin 11.6, platelet count 138. VBG done today morning showed a pH of 7.23. BMP showed sodium of 141, pot 4.2, chloride 109, bicarbonate 23, BUN 46, creatinine is 2.5. Glucose is 221. Calcium 7.5, phosphorous is 2. Magnesium is 2. Beta oxybutyrate is 1 now. Microbiology cultures are pending. IMAGING: A chest x-ray was done today morning which showed bilateral air space disease; left is greater than right. CURRENT INPATIENT MEDICATIONS: The patient's medications were all reviewed by myself. He is getting p.r.n. IV electrolytes according to CVVHDF protocol. He was getting IV D5 half normal saline with 40 mEq of KCL at 150 mL an hour. He continues to be on Vancomycin and Zosyn. No other significant change in the medications today as compared with yesterday. ASSESSMENT AND PLAN: 1. Acute renal failure - The patient is non oliguric at this time. I will continue the CVVHDF until tonight and at that time if his urine output stays stable, then CVVHDF will be stopped. 2. Severe diabetic ketoacidosis the patient's acidosis has resolved. Beta hydroxybutyrate is better now. Fluids were changed to dextrose containing fluids. Insulin requirement has decreased now. 3. Severe sepsis and bilateral multifocal pneumonia - The patient is currently on IV Zosyn and Vancomycin. A repeat chest x-ray shows bilateral alveolar disease. If his respiratory status gets worse, he might need to get intubated. I have requested the Pulmonary Service on board as well. 4. Electrolyte abnormalities including hypocalcemia, hypophosphatemia they are being corrected with CVVHDF protocol. 5. Hypothyroidism - continue current dose of Levothyroxine IV. Total critical care time spent in the management of this patient today morning in the ICU excluding all the procedures was 45 minutes.
[2020-11-04] MEDS: KCL 20MEQ IN 0.45NS 1000ML 1,000 ML IV SCH (23:53)
[2020-11-05] VITALS (22 sets, daily range): BP systolic 102–153; BP diastolic 56–85
[2020-11-05] MEDS: HumaLOG INSULIN (NovoLOG) PER UNIT SC SCH ×5 (00:17→23:32)
[2020-11-05] MEDS: IPRATROPIUM 0.5MG/ALBUTEROL 2.5MG INH SOL UD 3ML (DUONEB) NEB SCH ×6 (00:40→19:30)
[2020-11-05] MEDS: MIDAZOLAM INJ 2MG/2ML VIAL (J2250 PER 1MG) IV PRN ×4 (01:04→16:09)
[2020-11-05] MEDS ORDERED: ACETAMINOPHEN 325 MG/10.15 ML UDC NG ONE (04:50)
[2020-11-05] MEDS: PIPERACILLIN/TAZOBACTAM SOD 2.25 GM in D5W MINI-BAG PLUS 50 ML IV SCH ×2 (05:13→13:20)
[2020-11-05 05:24] LABS: ABG BASE EXCESS -3.6 (-2.0-2.0); ABG HCO3 20.2 MEQ/L (22.0-26.0); ABG O2 SATURATION 97.3 % (95.0-99.0); ABG PARTIAL PRESSURE CO2 32.1 mmHg (35.0-45.0); ABG PARTIAL PRESSURE O2 92.7 mmHg (75.0-100.0); ABG STANDARD HCO3 21.5 MEQ/L (22.0-26.0); ABG TOTAL CO2 21.2 MEQ/L (22.0-29.0); ABG pH (ARTERIAL) 7.416 UNITS (7.350-7.450)
[2020-11-05 05:31] LABS: HEMATOCRIT 28.6 % (42.0-52.0); HEMOGLOBIN 10.5 g/dl (13.5-17.5); MEAN CORPUSCULAR HEMOGLOBIN 34.2 pg (27.0-33.0); MEAN CORPUSCULAR HGB CONC 36.7 g/dl (32.0-36.5); MEAN CORPUSCULAR VOLUME 93.2 fl (80.0-96.0); PLATELET COUNT, AUTOMATED 113 10^3/uL (150-450); RED BLOOD COUNT 3.07 10^6/uL (4.30-6.10); WHITE BLOOD COUNT 8.3 10^3/uL (4.0-10.0)
[2020-11-05 05:56] LABS: MAGNESIUM LEVEL 2.1 MG/DL (1.8-2.4); PHOSPHORUS LEVEL 3.5 MG/DL (2.5-4.9)
[2020-11-05] MEDS: propofoL 1,000 MG in IV 1 EA IV SCH ×4 (06:08→23:24)
--- NOTE | 2020-11-05 06:33 | CCN ---
CRITICAL CARE NOTE DATE: 11/04/2020 START TIME: 1809 STOP TIME: 1853 SUBJECTIVE: I attended Julio Hollis here in the intensive care unit. The patient has been examined, chart reviewed. I spoke earlier in the day with Dr. Stephanie Luna and more recently with Dr. Suggs from nephrology as well as the nurse at the bedside. In essence, this is a 45-year-old gentleman new to this institution visiting from [place]. He has severe insulin dependent diabetes mellitus. He was transferred from [facility] for DK and altered mental status. He had significant renal failure, was anuric. Markedly acidotic with an initial pH of 7.23, then it was low at 7.17. Most recent blood gas shows pH 7.236, pCO2 49, pO2 58. That is a venous gas. This was done on CRRT. They have had marked difficulties with agitation and altered mental status. He has been having increasing difficulties with secretion control and worry about protecting his airway. Admission chest x-ray did suggest an aspiration pneumonitis. Due to increasing difficulties with mental status, secretion control and hypoxemia, he was electively intubated by anesthesia. Ventilator manipulations have been made by myself. OBJECTIVE: Currently he has a heart rate of 80, blood pressure 110 systolic. He does overbreathe the ventilator as he did receive succinylcholine but this is beginning to wear off. HEENT: Does show pupils do react. Sclerae clear. Oroendotracheal and orogastric tube in place. Membranes are mildly dry. Chest: Shows coarse scattered rhonchi. Expansion is symmetric. Tactile fremitus is palpable. Cardiac: Distance but regular. Peripheral pulses diminished but palpable. Abdomen: Soft with active bowel sounds. There is a right triple lumen dialysis catheter in place in the right femoral vein. Extremities: show no cyanosis or clubbing. Neurologic: He is sedate but does moves all extremities. Other laboratories show a white blood cell count this afternoon of 11.7, hemoglobin 11.6, platelet count of 138,000. Sodium 141, potassium 4.2, chloride 109, CO2 23, BUN 46, creatinine down to 2.52. Chest x-ray does show lines and tubes in good position. I do believe there are bilateral infiltrates, left greater than right. The most pressing problems requiring my immediate presence at the bedside: 1. Respiratory failure secondary to altered mental status. 2. Metabolic acidosis. 3. Renal failure. 4. Diabetes mellitus. 5. Aspiration pneumonitis. 6. Altered mental status, multifactorial. 7. Chronic pain syndrome. At this point, we will achieve sedation with propofol. He can have p.r.n. versus morphine as already ordered. Ventilator bundle is in place. Ulcer and DVT prophylaxis per primary service. He is on broad spectrum antimicrobials but now that an endotracheal tube is in place, we can get better specimens and therefore we will get a sputum for gram stain C&S. His electrolytes are being managed by nephrology. He will remain on the hospitalist service and I will assist him with his ventilatory support. Once he is off CRRT, we can obtain a CT scan of his brain to make sure there is nothing else untoward happening. At this point, we will proceed as outlined above. He remains critically ill. I left the bedside at 1854 hours. 44 minutes of critical care time at the bedside not including procedures.
[2020-11-05] MEDS: BUDESONIDE 0.5 MG/2 ML INHALATION SUSPENSION INH SCH ×2 (08:00→19:30)
[2020-11-05] MEDS: FORMOTEROL FUMARATE 20 MCG/2 ML INHALATION SOLUTION (PERFOROMIST) INH SCH ×2 (08:01→19:30)
--- NOTE | 2020-11-05 08:28 | REP ---
INDICATION: Resp failure COMPARISON: 11/03/2020, 11/04/2020 TECHNIQUE: Portable AP view of the chest FINDINGS: Endotracheal tube in satisfactory position. Nasogastric tube in satisfactory position. Dense left lower lobe/retrocardiac consolidation increased from prior examination. Small layering effusion cannot be excluded. Very subtle patchy airspace disease throughout the remainder of the left lung and right base cannot be excluded. No pneumothorax. Cardiac silhouette is within normal limits/stable. Skeletal structures are intact. IMPRESSION: Dense left lower lobe consolidation increased from prior examination. Possible small layering effusion. <Electronically signed by William Barfield > 11/05/20 0732
[2020-11-05] MEDS: CHLORHEXIDINE GLUCONATE 0.12 % 15ML UDC (PERIDEX ORAL RINSE) MT SCH ×2 (08:48→20:17)
[2020-11-05] MEDS: LEVOTHYROXINE 100MCG (0.1MG) VIAL IV SCH (08:49)
[2020-11-05] MEDS: PANTOPRAZOLE 40MG VIAL (C9113 PER 1) IV SCH ×2 (08:49→20:17)
[2020-11-05] MEDS: LEVEMIR (INSULIN DETEMIR) 1 UNITS/0.01ML SC SCH (08:50)
[2020-11-05] MEDS: HEPARIN SOD (PORCINE) 5000UNITS/ML 1ML VIAL/SYRINGE SC SCH ×2 (09:00→20:17)
[2020-11-05] MEDS: KCL 20MEQ IN 0.45NS 1000ML 1,000 ML IV SCH ×2 (09:41→20:12)
--- NOTE | 2020-11-05 10:02 | REP ---
INDICATION: altered mentation COMPARISON: None. TECHNIQUE: Axial noncontrast images from the skull base to the vertex with coronal reformations. This CT examination was performed using the following dose reduction techniques: Automated exposure control, adjustment of mA and/or kv according to the patient's size, and use of iterative reconstruction technique. FINDINGS: The ventricles, sulci, and cisterns are normal in position and appearance. Hutchinson-white differentiation is maintained. No acute intracranial hemorrhage, mass/mass effect, pathology or trauma/injury. No evidence for acute infarction. No extra-axial fluid collection. Calvarium is intact. Mucoperiosteal changes to the sinuses suggesting chronic sinus disease. IMPRESSION: No evidence for acute intracranial pathology or trauma/injury. Mild chronic sinus disease <Electronically signed by William Barfield > 11/05/20 0958
--- NOTE | 2020-11-05 10:22 | CCN ---
CRITICAL CARE NOTE DATE: 11/05/2020 START TIME: 839 STOP TIME: 917 SUBJECTIVE: I again attended Julio Hollis here in the intensive care unit. The patient has been examined, chart reviewed. He remains intubated, sedated, mechanically ventilated. I spoke with the nurse at the bedside. T max overnight 100.8, blood pressure 100-150 systolic. Heart rate generally in the 70s with a sinus mechanism. He does overbreathe the ventilator. He is beginning to make reasonable urine. He has had 800 mL out overnight. Most recent laboratories show a white blood cell count down to 8.3, hemoglobin 10.5, platelet count of 13,000. No diff this morning. Electrolytes are currently pending. Blood gases done on a PRVC rate of 15, tidal volume 450, PEEP of 5, FiO2 of 40% has a pH 7.416, pCO2 of 32.1, a pO2 of 92.7. Chest x-ray shows lines and tubes in good position. He has improved aeration and less obvious infiltrates today. OBJECTIVE: General: On exam, he does open his eyes to voice. He spontaneously moves all extremities. HEENT: Pupils do react. Sclerae are clear. Trachea is midline. Chest: Scattered rhonchi but cleared with suctioning. No obvious egophony. Cardiac: Shows no gallop. Peripheral pulses palpable. No edema. Abdomen: Soft with active bowel sounds. No convincing organomegaly or masses. Extremities: Show no obvious cyanosis or clubbing. Neurologic: As outlined above. He had significant fasciculations of the lower extremities noted last evening which are not evidence this morning but he does have bilateral upgoing toes. The most pressing problems requiring my presence at the bedside: 1. Respiratory failure requiring mechanical ventilatory support. 2. Aspiration pneumonitis. 3. Altered mental status with abnormal exam. 4. Renal failure. 5. DKA. 6. Diabetes mellitus with noncompliance. 7. Chronic pain syndrome. At this point, he has been on the ventilator less than 24 hours and I do not plan any significant weaning today especially in view of his secretions. I am concerned about the fasciculations and his upgoing toes. We will obtain a CT scan of the brain this morning as we were unable to do that while he was on CRRT. He does respond appropriately to voice and his pupils are equal and reactive and that is encouraging. For now for his aspiration, we will continue his current antimicrobials. Sputum culture is pending. He has no fever and his white count is improving. My suspicion is that until his mental status has improved, we will have difficulty with his secretions unless they clear. For now, we will continue his current antimicrobials as well as nebulized steroids as well as aggressive attention to secretions. Nutrition and his diabetes are per the primary service. Nephrology is involved. He is on CRRT. He is beginning to make reasonable urine. His creatinine is improving. At this point, he does remain critically ill. I left the bedside at 0918 hours. 38 minutes of critical care time at the bedside not including procedures. SAMPSON
--- NOTE | 2020-11-05 10:27 | IPNPDOC ---
Subjective Date Seen The patient was seen on 11/05/20. Subjective Chief Complaint/HPI Patient is intubated and sedated. Objective Physical Examination General Exam: Positive: Other (intubated and sedated) Eye Exam: Positive: Conjunctiva & lids normal Neck Exam: Positive: Supple; Negative: JVD, thyromegaly Chest Exam: Positive: Normal air movement, Other (bilateral basal crackles. 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 He was admitted for DKA, severe high anion gap metabolic acidosis, anuric HOWARD, Acute metabolic encephalopathy, aspiration pneumonia. Acute respiratory failure due to aspiration pneumonia, Intubated for poor mentation, agitation requiring sedation to control him then unable to manage secretions with increasing oxygen requirements Vent management as per pulmonary. Acute metabolic encephalopathy due to the DKA, extremely high sugars of over 1300 on presentation to other hospital , acidosis, and uremia sedated with propofol. CT head no acute issues. DKA resolved on levemir and lispro q 6 hours. FS q 6 hours. Anuric HOWARD resolving. Making good urine now. Of CRRT nephro following and managing the electrolytes. Aspiration pneumonia continue Zosyn MRSA pcr negative so stopped vancomycin. Follow-up Legionella and strep pneumo. Hypothyroidism: Half dose IV Synthroid until tolerating PO. COPD We will replace trelegy with DuoNebs and budesonide and Perforomist Chronic back pain and neuropathy Patient is on high-dose of baclofen at home He may go through withdrawals now that he has not had it for several days. Anxiety and depression He is on buspirone, Lexapro, trazodone, Eszopiclone at home Will be restarted when patient awake alert. Plan/VTE VTE Prophylaxis Ordered?: Yes VS, I&O, 24H, Fishbone Vital Signs/I&O Vital Signs Date Time Temp Pulse Resp B/P (MAP) Pulse Ox O2 Delivery O2 Flow Rate FiO2 11/05/20 06:00 100.8 87 20 125/58 (80) 93 Ventilator 40 11/04/20 16:00 6.0 I&O- Last 24 Hours up to 6 AM 11/05/20 06:00 Intake Total 3384.8 ml Output Total 4386 ml Balance -1001.2 ml Laboratory Data 24H LABS Laboratory Tests 2 11/04/20 07:56: Bedside Glucose (Misc Panel) 43L 11/04/20 08:01: Bedside Glucose (Misc Panel) 70 11/04/20 08:56: Bedside Glucose (Misc Panel) 119H 11/04/20 10:06: Bedside Glucose (Misc Panel) 99 11/04/20 11:01: Bedside Glucose (Misc Panel) 127H 11/04/20 11:50: Whole Blood Ionized Calcium 4.4L 11/04/20 11:51: Blood Gas Bicarbonate Standard 18.5, Venous Blood pH 7.236L, Venous Blood Partial Pressure CO2 49.0, Venous Blood Partial Pressure O2 58.6H, Venous Blood Total Carbon Dioxide 21.8L, Venous Blood HCO3 20.3L, Venous Blood Oxygen Saturation 88.0H, Venous Blood Base Excess -7.1L, Anion Gap 6L, Glomerular Filtration Rate 21.3L, Osmolality 311H, Calcium Level 7.3L, Phosphorus Level 2.0#L, Magnesium Level 2.1, Total Bilirubin 0.8, Direct Bilirubin 0.4H, Aspartate Amino Transf (AST/SGOT) 189H, Alanine Aminotransferase (ALT/SGPT) 113H, Alkaline Phosphatase 72, Total Protein 5.0L, Albumin 2.9L, Albumin/Globulin Ratio 1.4 11/04/20 12:08: Bedside Glucose (Misc Panel) 149H 11/04/20 13:09: Bedside Glucose (Misc Panel) 186H 11/04/20 13:16: 11/04/20 14:10: Bedside Glucose (Misc Panel) 201H 11/04/20 14:54: Ammonia < 10 11/04/20 15:04: Bedside Glucose (Misc Panel) 219H 11/04/20 16:06: Bedside Glucose (Misc Panel) 211H 11/04/20 17:12: Bedside Glucose (Misc Panel) 109H 11/04/20 17:48: Nucleated Red Blood Cells % (auto) 0.0, Activated Partial Thromboplast Time 34.5, Anion Gap 9, Glomerular Filtration Rate 29.3L, Calcium Level 7.5L, Whole Blood Ionized Calcium 4.5, Phosphorus Level 2.0L, Magnesium Level 2.0, Vancomycin Level Trough 15.4 11/04/20 18:14: Bedside Glucose (Misc Panel) 239H 11/04/20 20:32: Blood Gas Bicarbonate Standard 20.0L, Arterial Blood pH 7.366, Arterial Blood Partial Pressure CO2 34.3L, Arterial Blood Partial Pressure O2 105.0H, Arterial Blood Total CO2 20.3L, Arterial Blood HCO3 19.2L, Arterial Blood Base Excess - 5.4L, Arterial Blood Oxygen Saturation 97.6 11/05/20 00:03: Bedside Glucose (Misc Panel) 290H 11/05/20 05:11: Nucleated Red Blood Cells % (auto) 0.0, Activated Partial Thromboplast Time 32.9, Whole Blood Ionized Calcium 4.1L, Phosphorus Level 3.5#, Magnesium Level 2.1 11/05/20 05:20: Blood Gas Bicarbonate Standard 21.5L, Arterial Blood pH 7.416, Arterial Blood Partial Pressure CO2 32.1L, Arterial Blood Partial Pressure O2 92.7, Arterial Blood Total CO2 21.2L, Arterial Blood HCO3 20.2L, Arterial Blood Base Excess - 3.6L, Arterial Blood Oxygen Saturation 97.3 11/05/20 05:29: Bedside Glucose (Misc Panel) 273H CBC/BMP Laboratory Tests 11/04/20 11:51 11/04/20 17:48 11/05/20 05:11 Microbiology Microbiology 11/04/20 Gram Stain - Final, Resulted 11/04/20 Sputum Culture, Resulted Pending 11/03/20 Blood Culture - Preliminary, Resulted No growth after 24 hours . All specim... 11/03/20 Blood Culture - Preliminary, Resulted No growth after 24 hours . All specim... 11/03/20 Urine Culture - Final, Complete XENIA HERNANDEZ MD Nov 05, 2020 07:30
[2020-11-05 10:40] LABS: CALCIUM LEVEL 7.3 MG/DL (8.5-10.1); CREATININE FOR GFR 2.2 MG/DL (0.70-1.30); GLOMERULAR FILTRATION RATE 34.3 (>60); POTASSIUM SERUM 3.9 MEQ/L (3.5-5.1)
[2020-11-05] MEDS ORDERED: PIPERACILLIN/TAZOBACTAM SOD 3.375 GM in D5W MINI-BAG PLUS 50 ML IV SCH (13:00)
[2020-11-05] MEDS: ACETAMINOPHEN 325 MG/10.15 ML UDC GT PRN (17:55)
[2020-11-05] MEDS: PIPERACILLIN/TAZOBACTAM SOD 3.375 GM in D5W MINI-BAG PLUS 50 ML IV SCH ×2 (17:59→23:33)
[2020-11-05 20:36] LABS: CALCIUM LEVEL 7.7 MG/DL (8.5-10.1); CREATININE FOR GFR 2.16 MG/DL (0.70-1.30); GLOMERULAR FILTRATION RATE 35.1 (>60); POTASSIUM SERUM 3.9 MEQ/L (3.5-5.1)
--- NOTE | 2020-11-05 20:57 | IPN ---
NEPHROLOGY PROGRESS NOTE DATE: 11/05/2020 SUBJECTIVE: Patient seen and examined this morning at the bedside in the intensive care unit. He was intubated yesterday evening. He has had fever spikes. He has had improved urine output as well and continuous renal replacement therapy (CRRT) was stopped yesterday evening. OBJECTIVE: Maximum temperature (T-max) 100.8, current temperature (T-current) 100.2, pulse 95, respiratory rate 17, blood pressure 140/78, saturating 97% on 40% FiO2. INTAKE AND OUTPUT: Intake yesterday was 4 liters. Output yesterday was 2 liters of urine and 3 liters removed by continuous renal replacement therapy (CRRT). Urine output thus far today is already more than 2 liters. Weight in the bed scale today is 81 kg. GENERAL: Patient is seen today intubated and sedated and mechanically ventilated. HEENT: His pupils are reactive. Endotracheal tube is in place. HEART: Sounds are regular. There is no peripheral edema. Radial pulses are 2+. LUNGS: There is coarse symmetric air entry. He is breathing over the vent. ABDOMEN: Soft. There are hypoactive bowel sounds. GENITOURINARY: Shows an indwelling Carver catheter and Rt femoral trialysis catheter EXTREMITIES: Negative for clubbing, cyanosis or edema. NEUROLOGIC: He is sedate. LABORATORY DATA: White count 8.3, hemoglobin 10.5, platelets 113. Sodium 140, potassium 3.9, bicarbonate 23, BUN 38, creatinine 2.2, glucose 298, phosphorus 3.5, magnesium 2.1. MICROBIOLOGY: Blood cultures from November 03, 2020: No growth for 24 hours times two sets. IMAGING: CT of the head done this morning shows no acute findings. INPATIENT MEDICATIONS: He is receiving half normal saline with 20 mEq of potassium chloride at 100 mL/h. He is on: - Zosyn 3.375 grams intravenous (IV) every 6 hours - propofol infusion - Tylenol as needed - Duo-Nebs - Perforomist - heparin 5000 units subcutaneous every 12 hours - insulin - Synthroid 50 mcg IV daily - Protonix 40 mg IV twice a day PROBLEMS: 1. Nonoliguric acute renal failure in the setting of severe diabetic ketoacidosis and sepsis with pneumonia. The patient is now in renal recovery. His continuous renal replacement therapy (CRRT) was stopped yesterday evening. He has improving urine output. He is in a net negative fluid balance the past 24 hours. Given that he is not on any sort of nutrition or tube feeds, I am going to continue him on the half normal saline with potassium at this time and we can likely discontinue the Trialysis catheter in the coming 24 hours unless he needs it for central line access, et cetera. 2. Thrombocytopenia. I note that his platelet count has decreased from 196 down to 113 in the past two days. He is on heparin subcutaneous deep venous thrombosis (DVT) prophylaxis and I will defer management of that to the primary team. 3. Status post diabetic ketoacidosis (severe). His fingersticks are now mostly in the 200s. He continues on insulin managed by the primary service. He requires hypotonic fluids, but he is not suitable for dextrose-containing fluids. Hence, we are continuing him on half normal saline at this time. 4. Anemia. It is mild. We will monitor for now and get iron studies as needed. MTDD
[2020-11-06] VITALS (20 sets, daily range): BP systolic 115–137; BP diastolic 58–73
[2020-11-06] MEDS: IPRATROPIUM 0.5MG/ALBUTEROL 2.5MG INH SOL UD 3ML (DUONEB) NEB SCH ×7 (00:06→23:11)
[2020-11-06] MEDS: ACETAMINOPHEN 325 MG/10.15 ML UDC GT PRN (02:31)
[2020-11-06] MEDS: MIDAZOLAM INJ 2MG/2ML VIAL (J2250 PER 1MG) IV PRN ×5 (05:06→23:13)
[2020-11-06 05:17] LABS: HEMATOCRIT 28.4 % (42.0-52.0); HEMOGLOBIN 10.1 g/dl (13.5-17.5); MEAN CORPUSCULAR HEMOGLOBIN 34.2 pg (27.0-33.0); MEAN CORPUSCULAR HGB CONC 35.6 g/dl (32.0-36.5); MEAN CORPUSCULAR VOLUME 96.3 fl (80.0-96.0); RED BLOOD COUNT 2.95 10^6/uL (4.30-6.10)
[2020-11-06 05:32] LABS: CALCIUM LEVEL 7.7 MG/DL (8.5-10.1); CREATININE FOR GFR 1.98 MG/DL (0.70-1.30); GLOMERULAR FILTRATION RATE 38.8 (>60); POTASSIUM SERUM 3.9 MEQ/L (3.5-5.1)
[2020-11-06 05:47] LABS: PLATELET COUNT, AUTOMATED 87 10^3/uL (150-450)
[2020-11-06 05:48] LABS: ABG BASE EXCESS -1.2 (-2.0-2.0); ABG O2 SATURATION 94.4 % (95.0-99.0); ABG PARTIAL PRESSURE CO2 36.5 mmHg (35.0-45.0); ABG PARTIAL PRESSURE O2 71.6 mmHg (75.0-100.0); ABG STANDARD HCO3 23.4 MEQ/L (22.0-26.0); ABG TOTAL CO2 24.1 MEQ/L (22.0-29.0); ABG pH (ARTERIAL) 7.417 UNITS (7.350-7.450)
[2020-11-06 05:50] LABS: LYMPHOCYTES 9 % (16-44); MONOCYTES 5 % (0-5); NEUTROPHILS 86 % (28-66); PLATELET ESTIMATE DECREASED (NORMAL)
[2020-11-06] MEDS: PIPERACILLIN/TAZOBACTAM SOD 3.375 GM in D5W MINI-BAG PLUS 50 ML IV SCH ×3 (05:50→17:33)
[2020-11-06] MEDS: KCL 20MEQ IN 0.45NS 1000ML 1,000 ML IV SCH (05:50)
[2020-11-06] MEDS: HumaLOG INSULIN (NovoLOG) PER UNIT SC SCH ×3 (06:11→16:57)
[2020-11-06] MEDS: BUDESONIDE 0.5 MG/2 ML INHALATION SUSPENSION INH SCH ×2 (07:25→19:09)
[2020-11-06] MEDS: FORMOTEROL FUMARATE 20 MCG/2 ML INHALATION SOLUTION (PERFOROMIST) INH SCH ×2 (07:25→19:09)
--- NOTE | 2020-11-06 07:46 | IPN ---
PROGRESS NOTE DATE: 11/06/2020 SUBJECTIVE: The patient remains sedated, intubated, mechanically ventilated, febrile overnight with T-max of 101.1. Currently on IV Zosyn. MRSA screen negative with normal white count. Urine output of 3.49 liters yesterday, 1.025 liters since midnight. OBJECTIVE: VITALS: Temperature 101.1 maximum, current temperature 100.2, pulse 79, sinus rhythm, respiratory rate 15, blood pressure 124/63, 95% on 40% FiO2 vented. GENERAL: Sedated. HEENT: Nasogastric tube, trach tube, no tracheal deviation. Dry mucous membranes. NECK: No JVD or thyromegaly. LUNGS: Clear to auscultation. No wheezes, rhonchi or rales. HEART: S1, S2, sinus rhythm. ABDOMEN: Soft, nontender, non-distended, positive bowel sounds, Carver catheter in place with yellow colored urine. EXTREMITIES: No cyanosis, clubbing or pitting edema. NEURO: sedated. b/l babinski, muscle fasciculations Laboratory data, imaging studies, microbiology have been reviewed. ASSESSMENT/PLAN: 45-year-old male with history of dyslipidemia, depression, anxiety, hypothyroidism, restless leg, COPD not oxygen or steroid-dependent, insomnia, cleft palate repair with skin grafting, type 1 diabetes with diabetic retinopathy and chronic pain transferred from [facility] for DKA, high anion gap metabolic acidosis, aneuric acute kidney injury, acute metabolic encephalopathy and aspiration pneumonia requiring CRRT. 1. Acute respiratory failure secondary to aspiration pneumonia. Vent management per executive consultant. Currently with nasogastric tube, suctioning, head of bed elevation, being treated for aspiration pneumonia. 2. Aneuric acute kidney injury, status post CRRT, currently has adequate urine output with improving creatinine managed by nephrology. No metabolic acidosis or fluid overload at this time. No hyperkalemia. Strict I's and O's, daily weight, Carver catheter for now. 3. Acute metabolic encephalopathy secondary to DKA, acidosis, uremia. Currently sedated, intubated and mechanically ventilated. Defer to topography technician regarding weaning trial once clinically improved. 4. DKA resolved, currently on Lispro every 6 hours and Levemir insulin. Fingersticks every 6 hours. 5. Aspiration pneumonia. MRSA negative, discontinued Vancomycin. Currently on Zosyn. Pending urine Legionella antigen and Strep pneumonia. Sputum culture shows yeast-like organism, blood culture is negative. 6. Hypothyroidism, on IV Synthroid, 50% of PO dose. 7. COPD, on DuoNeb, Budesonide, Perforomist. 8. Chronic back pain. 9. B/L babinski-repeat ct head. unable to get MRI due tometal from previous palate surgeries, Abnormal creatinine will not permit CT angio Head. 10. Currently sedated. Anxiety, depression. PO meds discontinued due to NPO status with nasogastric tube. 11. DVT prophylaxis with subcutaneous Heparin, renally dosed. DISPOSITION: Weaning trial per topography technician once clinically improved. MTDD
--- NOTE | 2020-11-06 08:11 | REP ---
INDICATION: Resp failure. COMPARISON: Comparison portable chest x-ray November 05, 2020. TECHNIQUE: Portable upright AP chest radiograph. FINDINGS: There is improved aeration in the left lower lobe although a interstitial infiltrate persists in the left lower lobe. The left hemidiaphragm is now visible. There are some increased markings in the right base unchanged. Endotracheal tube is in good position at the level just below the proximal clavicles. NG tube enters the left upper quadrant.. EKG monitoring electrodes are visible . IMPRESSION: Improved aeration left lower lobe. There is an interstitial infiltrate in the left lower lobe and some increased interstitial markings persist in the right base.. <Electronically signed by Nicolas Pike > 11/06/20 [id number]
[2020-11-06] MEDS: LEVOTHYROXINE 100MCG (0.1MG) VIAL IV SCH (08:30)
[2020-11-06] MEDS: LEVEMIR (INSULIN DETEMIR) 1 UNITS/0.01ML SC SCH (08:30)
[2020-11-06] MEDS: CHLORHEXIDINE GLUCONATE 0.12 % 15ML UDC (PERIDEX ORAL RINSE) MT SCH ×2 (08:30→20:09)
[2020-11-06] MEDS: PANTOPRAZOLE 40MG VIAL (C9113 PER 1) IV SCH ×2 (08:30→20:09)
[2020-11-06] MEDS ORDERED: FLUCONAZOLE 200 MG in IV 1 EA IV SCH (10:00)
[2020-11-06] MEDS: propofoL 1,000 MG in IV 1 EA IV SCH ×2 (10:12→16:58)
[2020-11-06] MEDS: D5W 1,000 ML IV SCH ×2 (10:24→16:57)
[2020-11-06 10:57] LABS: ABG BASE EXCESS 0.2 (-2.0-2.0); ABG HCO3 24.7 MEQ/L (22.0-26.0); ABG O2 SATURATION 97.4 % (95.0-99.0); ABG PARTIAL PRESSURE CO2 39.5 mmHg (35.0-45.0); ABG PARTIAL PRESSURE O2 105.8 mmHg (75.0-100.0); ABG STANDARD HCO3 24.7 MEQ/L (22.0-26.0); ABG TOTAL CO2 25.9 MEQ/L (22.0-29.0); ABG pH (ARTERIAL) 7.414 UNITS (7.350-7.450)
[2020-11-06 12:11] LABS: MYCOPLASMA PNEUMONIAE IgG <100 U/mL (0-99); MYCOPLASMA PNEUMONIAE IgM <770 U/mL (0-769)
--- NOTE | 2020-11-06 12:58 | CCN ---
CRITICAL CARE NOTE DATE: 11/06/2020 SUBJECTIVE: The patient was seen at bedside in the ICU this morning. The patient is resting comfortably in bed without any acute distress. He is mechanically ventilated and sedated currently on PRVC with settings of tidal volume 450, PEEP 5, respirations of 15 with FiO2 of 40% satting at 98%. Overnight, he had a T-max of 101 and a net output of negative 2 liters including a 100 mL of output from his OG tube. This morning, we attempted to do a sedation vacation and patient was able to follow some commands including moving his eyebrows when instructed to open up his eyes. REVIEW OF SYSTEMS: Cannot be assessed due to patient's mentation and intubation status. OBJECTIVE: VITAL SIGNS: Temperature 100.2 rectal, pulse 79, respirations 15, blood pressure 124/63 with MAP of 83. Pulse 95% on 40% FiO2 on mode PRVC with settings of tidal volume 450, PEEP of 5, respirations 15. GENERAL: The patient is resting comfortably without any acute distress. He is able to follow some commands and raise his eyebrows when asked to open up his eyes. The patient does have spontaneous movements in all extremities. NEUROLOGIC: The patient does have five beats of clonus bilaterally. There were no fasciculations witnessed today. Positive Babinski bilaterally. No signs of tremors this morning. The patient does have episodes of tensing up during suctioning. HEENT: Sclerae clear and anicteric. Pupils are reactive to light and symmetrical. His mucous membranes are dry. There is some residual dried blood in his nasal airway. Tongue is midline. NECK: There is no tracheal deviation or mass palpated. There is no significant adenopathy appreciated. CARDIAC: Normal S1, S2. There is no murmur, gallops, or rubs appreciated. No peripheral edema. 2+ pedal pulses appreciated bilaterally. Unable to appreciate JVD PULMONARY: He does have diminished breath sounds with symmetrical expansion. I was not able to appreciate any wheezes, crackles, rhonchi, or rales. There was no dullness to percussion. There were no retractions or accessory muscle use. ABDOMEN: Soft and nondistended with normal bowel sounds. Cannot appreciate any significant organomegaly. No apparent masses or hernias appreciated. EXTREMITIES: There is no bruising, wounds, or clubbing appreciated. MUSCULOSKELETAL: The patient does not seem to have any muscle wasting. Range of motion cannot be assessed due to mentation. LABORATORY DATA: White count 10, H&H 10.1/28.4, platelets 87,000. Sodium 146, potassium 3.9, chloride 113, bicarb 26, BUN and creatinine 25/1.98. Fasting glucose 114. Magnesium 2.3. MICROBIOLOGY: Blood cultures no growth. Urine cultures no growth. Gram stain sputum culture final report moderate WBCs with few yeast-like organisms from the gram stain. Sputum culture preliminary findings show yeast-like organism (heavy). IMAGING: Head CT performed yesterday 11/05/2020, impression no evidence of acute intracranial pathology or trauma/injury. Mild chronic sinus disease. Chest x-ray from today 11/06/2020, impression improved aeration left lower lobe. There is an interstitial infiltrate in the left lower lobe and some increased interstitial markings persistent in the right base. ASSESSMENT AND PLAN: This is a 45-year-old gentleman with past medical history significant for type 1 diabetes uncontrolled on home medication regimen with diabetic neuropathy and hypothyroidism who was transferred to [facility] ([facility]) from [facility] because of severe diabetic ketoacidosis (DKA) and anuric acute renal failure. The patient was having worsening nausea and vomiting that started about five days ago, which has progressively gotten worse. He also had increased confusion and was thereafter brought to [place] to be further assessed. He was found to be in anion gap metabolic acidosis from severe DKA, as well as acute renal failure with a creatinine of 4.7. He was also found to have leukocytosis, as well as a right lower lobe opacity on radiographs suspicious for pneumonia. The patient was admitted to the ICU for further management. NEUROLOGICAL: The patient is intubated, sedated, and mechanically ventilated currently on mode pressure-regulated volume control (PRVC) with settings tidal volume 450, positive end-expiratory pressure (PEEP) of 5, respirations 15, FiO2 of 40% satting at 95%. The patient does have spontaneous movements in all extremities, as well as movement of eyebrows when asked to open his eyes. The patient does have upgoing toes bilaterally and five beats of clonus bilaterally. I did not appreciate any fasciculations or tremors; however, nursing reported muscle tensing and whole body rigidity when he was being suctioned. We did a scan of his head which did not show any intracranial abn. CARDIAC: The patient is able to maintain a mean arterial pressure (MAP) greater than 65% without any pressors. This morning, his blood pressure is 130/68. We will continue to monitor closely. PULMONARY: The patient's arterial blood gas (ABG) this morning on 11/06/2020, shows pH 7.4/36.5/72% on pressure-regulated volume control (PRVC) with settings of tidal volume 450, PEEP 5, respirations 15, FiO2 of 40% satting at 95%. We will attempt vent liberation and switch his vent mode to SIMV with pressure support with settings of tidal volume of 450, PEEP of 5, respirations 8, FiO2 of 40% with pressure support of 10. I will order for a repeat ABG an hour after vent changes. We will continue with vent bundle care with chlorhexidine mouthwash and head of the bed greater than 30 degrees. We will continue with daily chest x-rays and ABGs while intubated. The patient still has very thick and voluminous amount of secretions, and we will not attempt to extubate today as he may not be able to protect his own airways. NEPHROLOGY: The patient had a net negative of negative 2 liters with about 100 mL of bilious output from his orogastric (OG) tube. The patient is status post continuous renal replacement therapy (CRRT) day 2 now. His renal function continues to improve. BUN and creatinine today are 25/1.98. Nephrology is consulted and appreciate their recommendations. INFECTIOUS DISEASE: The patient's chest x-ray today still shows a left lower lobe opacity and was started on broad spec abx with vanco/zosyn. His MRSA was neg and he was discontinued on vancomycin, but remains on zosyn (day 2). Pt continues to spike fevers with Tmax of 101 last night. I suspected this is likely due to aspiration pneumonia as patient is producing voluminous amounts of thick secretions. His gram stain showed moderate WBCs with a few yeast-like organisms and the preliminary sputum culture also shows heavy yeast-like organisms. We will add a loading dose of 400 Diflucan and continue with 200 mg of Diflucan q.24 hours daily. The patient still has a right femoral Trialysis catheter that was placed by nephrology for CRRT. he is currently s/p day 2 from CRRT. There's no signs of infection on exam around the catheter. The line was examined and does not look infected. The patient's blood and urine cultures did not show any growth. GASTROENTEROLOGY (GI)/ENDOCRINE: The patient is status post (severe) diabetic ketoacidosis (DKA). Currently he has transitioned to subcutaneous insulin and his sugar this morning is 114. Currently he is transitioned from half-normal saline to D5W. GI prophylaxis while intubated with Protonix. Continue with his Synthroid for hypothyroidism. HEMATOLOGY: The patient does have thrombocytopenia likely in the setting of critical illness and sepsis. His platelets this morning are 87,000. I will defer to the primary team for management of his thrombocytopenia. he's on heparin for dvt ppx. Deep vein thrombosis (DVT) prophylaxis with heparin. CODE STATUS: FULL. I, Dr. Eagle Day, was physically present for the entire interview and exam. My personal exam agrees with the above. I agree with the above assessment and plan. [facility]
[2020-11-06] MEDS ORDERED: FLUCONAZOLE 400 MG in IV 1 EA IV ONE (13:00)
[2020-11-06 14:34] LABS: INR 1.04; PROTHROMBIN TIME 13.8 SECONDS (12.5-14.3)
[2020-11-06 14:35] LABS: PARTIAL THROMBOPLASTIN TIME 33.5 SECONDS (24.2-38.5)
[2020-11-06 14:38] LABS: D-DIMER QUANT 3001.43 ng/ml (<500)
--- NOTE | 2020-11-06 18:09 | IPN ---
PROGRESS NOTE DATE: 11/06/2020 SUBJECTIVE: The patient is seen and examined this morning at the bedside in the intensive care unit. He is in renal recovery. He made 3.5 liters of urine in the past 24 hours. He is mildly hypernatremic now and his IV fluids are being changed. Nursing staff reports the patient has some fasciculations, but when his sedation was weaned he did follow some simple commands. Laboratory studies show ongoing improvement in his creatinine. The patient had ongoing low grade temperatures. OBJECTIVE: VITAL SIGNS: T-max 101.5 yesterday at 7 p.m. T-current 99.2. Pulse 78, respiratory rate 17, blood pressure 137/60, saturating 96% on 35% FiO2. INTAKE AND OUTPUT: Intake yesterday 1700, urine output 3500, net negative 1.8 liters. Weight on the bed scale today 80.9 kg. GENERAL: The patient is seen intubated, sedated, and mechanically ventilated. HEENT: Pupils are reactive to light. Endotracheal tube is in place w/ secretions notes. Orogastric tube is in place. HEART: Sounds are regular. There is no peripheral edema. Radial pulses are palpable. LUNGS: Show symmetric coarse air entry bilaterally, no rales.. ABDOMEN: Soft. There are bowel sounds. GENITOURINARY: Shows indwelling Carver catheter and a right femoral Trialysis catheter. EXTREMITIES: Negative for clubbing, cyanosis, or edema. NEUROLOGIC: He is sedate. LABORATORY STUDIES: Today show sodium 146, potassium 3.9, bicarbonate 26, BUN 25, creatinine 1.9, glucose 114. Hemoglobin 10.1, platelets 87,000, repeat platelets 79,000. His sputum culture grew a yeast-like organism. IMAGING DATA: His chest x-ray today shows improved aeration of the left lower lobe. There are some increased interstitial markings in the right base. INPATIENT MEDICATIONS: I note he was started on Diflucan. I stopped his half-normal saline with potassium chloride and switched him to D5W at 150 mL/hour. He otherwise continues on IV Zosyn, propofol infusion, Pulmicort, formoterol. I note his heparin subcutaneous was stopped. His insulin was adjusted by the primary service. He continues on Synthroid and Protonix. PROBLEMS: 1. Nonoliguric acute renal failure now in renal recovery. The patient initially required continuous renal replacement therapy (CRRT) in the setting of severe diabetic ketoacidosis and sepsis. His CRRT was stopped on Thursday evening. He is in renal recovery now. He has become hypernatremic and his IV fluids are being adjusted today. His Trialysis catheter can be discontinued whenever the intensive care team no longer needs it for central line access, etc., etc. 2. Hypernatremia. It is mild and it is in the setting of renal recovery. He was almost polyuric yesterday. He made 3.5 liters of urine. It is likely due to polyuria phase of renal recovery. Half-normal saline was stopped and the patient was put on D5W at 150 mL/hour. I will repeat a BMP in the evening and reduce the rate of fluids as needed. I spoke with Dr. Borja regarding keeping an eye on his fingersticks given that he is getting D5W and was very recently in severe diabetic ketoacidosis (DKA). 3. Thrombocytopenia. Platelet counts continue to fall and primary team has stopped the heparin subcutaneous. 4. Status post diabetic ketoacidosis. His fingersticks are now mostly in the 100s and nicely controlled. He is on insulin managed by the primary service. We will keep a close eye on his glucose levels while he is getting dextrose-containing hypotonic fluid and I will cut the rate of fluids depending on his urine output. 5. Ventilator-dependent respiratory failure. I note the patient had yeast on the sputum culture. He was started on Diflucan by the primary team. His volume status is acceptable and vent management is as per .net developer. He also continues on Zosyn. He is having low grade fevers. He is being treated for aspiration pneumonia. His Fio2 requirements are stable (35%). MTDD
[2020-11-06 18:42] LABS: CALCIUM LEVEL 7.6 MG/DL (8.5-10.1); CREATININE FOR GFR 1.64 MG/DL (0.70-1.30); GLOMERULAR FILTRATION RATE 48.2 (>60); POTASSIUM SERUM 3.7 MEQ/L (3.5-5.1)
[2020-11-07] VITALS (16 sets, daily range): BP systolic 110–147; BP diastolic 57–84
[2020-11-07] MEDS: MIDAZOLAM INJ 2MG/2ML VIAL (J2250 PER 1MG) IV PRN ×3 (00:16→03:15)
[2020-11-07] MEDS: PIPERACILLIN/TAZOBACTAM SOD 3.375 GM in D5W MINI-BAG PLUS 50 ML IV SCH ×4 (00:34→18:07)
[2020-11-07] MEDS: propofoL 1,000 MG in IV 1 EA IV SCH ×2 (01:12→06:52)
[2020-11-07] MEDS: IPRATROPIUM 0.5MG/ALBUTEROL 2.5MG INH SOL UD 3ML (DUONEB) NEB SCH ×2 (03:06→07:35)
[2020-11-07 05:04] LABS: BASO % 0.2 % (0.0-1.0); EOS # 0.6 10^3/uL (0.0-0.5); EOS % 4.8 % (0.0-3.0); HEMATOCRIT 27.6 % (42.0-52.0); HEMOGLOBIN 9.3 g/dl (13.5-17.5); LYMPH # 1.1 10^3/uL (1.5-5.0); LYMPH % 9.6 % (24.0-44.0); MEAN CORPUSCULAR HEMOGLOBIN 33.2 pg (27.0-33.0); MEAN CORPUSCULAR HGB CONC 33.7 g/dl (32.0-36.5); MEAN CORPUSCULAR VOLUME 98.6 fl (80.0-96.0); MONO # 0.8 10^3/uL (0.0-0.8); MONO % 7.3 % (2.0-8.0); NEUTROPHILS # 8.9 10^3/uL (1.5-8.5); NEUTROPHILS % 77.2 % (36.0-66.0); WHITE BLOOD COUNT 11.5 10^3/uL (4.0-10.0)
[2020-11-07 05:06] LABS: PLATELET COUNT, AUTOMATED 98 10^3/uL (150-450)
[2020-11-07 05:19] LABS: CALCIUM LEVEL 7.6 MG/DL (8.5-10.1); CREATININE FOR GFR 1.52 MG/DL (0.70-1.30); GLOMERULAR FILTRATION RATE 52.6 (>60); POTASSIUM SERUM 3.7 MEQ/L (3.5-5.1)
[2020-11-07 05:52] LABS: ABG BASE EXCESS 0.4 (-2.0-2.0); ABG HCO3 25.1 MEQ/L (22.0-26.0); ABG O2 SATURATION 98.3 % (95.0-99.0); ABG PARTIAL PRESSURE CO2 40.5 mmHg (35.0-45.0); ABG STANDARD HCO3 24.9 MEQ/L (22.0-26.0); ABG TOTAL CO2 26.3 MEQ/L (22.0-29.0)
[2020-11-07] MEDS: HumaLOG INSULIN (NovoLOG) PER UNIT SC SCH ×4 (06:03→18:00)
[2020-11-07] MEDS: BUDESONIDE 0.5 MG/2 ML INHALATION SUSPENSION INH SCH ×2 (07:35→19:33)
[2020-11-07] MEDS: FORMOTEROL FUMARATE 20 MCG/2 ML INHALATION SOLUTION (PERFOROMIST) INH SCH ×2 (07:35→19:33)
[2020-11-07] MEDS ORDERED: NEOSPORIN OINT 0.9 GM PKT TOP ONE (07:50)
[2020-11-07] MEDS: PANTOPRAZOLE 40MG VIAL (C9113 PER 1) IV SCH ×2 (08:00→21:02)
[2020-11-07] MEDS: CHLORHEXIDINE GLUCONATE 0.12 % 15ML UDC (PERIDEX ORAL RINSE) MT SCH (08:00)
[2020-11-07] MEDS: LEVEMIR (INSULIN DETEMIR) 1 UNITS/0.01ML SC SCH (08:01)
[2020-11-07] MEDS: LEVOTHYROXINE 100MCG (0.1MG) VIAL IV SCH (08:02)
--- NOTE | 2020-11-07 09:07 | REP ---
INDICATION: Resp failure COMPARISON: 11/06/2020 TECHNIQUE: Portable AP view of the chest FINDINGS: Endotracheal tube and nasogastric tube are in stable satisfactory position. Areas of consolidation in the left lower lobe appears slightly more confluent. Bilateral lower lobe interstitial infiltrates are also suggested which may be slightly increased. No effusion. No pneumothorax. Cardiac silhouette is normal. IMPRESSION: Left lower lobe/retrocardiac consolidation slightly more confluent than prior examination. Bibasilar interstitial infiltrates are also suggested and possibly slightly increased. <Electronically signed by William Barfield > 11/07/20 0903
[2020-11-07 09:49] LABS: ABG BASE EXCESS 2.7 (-2.0-2.0); ABG HCO3 26.7 MEQ/L (22.0-26.0); ABG O2 SATURATION 95.9 % (95.0-99.0); ABG PARTIAL PRESSURE CO2 38.7 mmHg (35.0-45.0); ABG PARTIAL PRESSURE O2 81.2 mmHg (75.0-100.0); ABG STANDARD HCO3 26.9 MEQ/L (22.0-26.0); ABG TOTAL CO2 27.9 MEQ/L (22.0-29.0); ABG pH (ARTERIAL) 7.457 UNITS (7.350-7.450)
--- NOTE | 2020-11-07 10:19 | IPNPDOC ---
Date Seen The patient was seen on 11/07/20. Progress Note SUBJECTIVE: bled at dialysis cath site this am w about 100ml despite sandbag. awake. weaning trial today. OBJECTIVE: VITALS: see below GENERAL: awake, ET tube no pallor no icterus no distress HEENT: Nasogastric tube, ET tube tube, no tracheal deviation. Dry mucous membranes. NECK: No JVD or thyromegaly. LUNGS: Clear to auscultation. No wheezes, rhonchi or rales. HEART: S1, S2, sinus rhythm. ABDOMEN: Soft, nontender, non-distended, positive bowel sounds, Carver catheter in place with yellow colored urine. bloody right groin -pressure being applied by RN blood-soaked gown. EXTREMITIES: No cyanosis, clubbing or pitting edema. NEURO: sedated. b/l babinski, muscle fasciculations Laboratory data, imaging studies, microbiology have been reviewed. ASSESSMENT/PLAN: 45-year-old male with history of dyslipidemia, depression, anxiety, hypothyroidism, restless leg, COPD not oxygen or steroid-dependent, insomnia, cleft palate repair with skin grafting, type 1 diabetes with diabetic retinopathy and chronic pain transferred from [facility] for DKA, high anion gap metabolic acidosis, aneuric acute kidney injury, acute metabolic encephalopathy and aspiration pneumonia requiring CRRT. 1. Acute respiratory failure secondary to aspiration pneumonia. weaning trial today. Currently with nasogastric tube, suctioning, head of bed elevation, being treated for aspiration pneumonia. 2. Aneuric acute kidney injury, status post CRRT, currently has adequate urine output with improving creatinine managed by nephrology.dialysis cath removed with acute blood loss. stable urine output. 3. Acute metabolic encephalopathy secondary to DKA, acidosis, uremia. awake today . ct head negative despite fasciculations and positive b/l babinski. 4. DKA resolved, currently on Lispro every 6 hours and Levemir insulin. Fingersticks every 6 hours. weaning trial today. monitor for aspiration. swallow eval. 5. Aspiration pneumonia. MRSA negative, discontinued Vancomycin. Currently on Zosyn. Pending urine Legionella antigen and Strep pneumonia. Sputum culture shows yeast-like organism, blood culture is negative. 6. Hypothyroidism, on IV Synthroid, 50% of PO dose. once resumes po intake, change to po. 7. COPD, on DuoNeb, Budesonide, Perforomist. 8. Chronic back pain. 9. B/L babinski-repeat ct head. unable to get MRI due tometal from previous palate surgeries, Abnormal creatinine will not permit CT angio Head. 10. Acute blood loss due increased bleeding form dialysis cath which has been discontinued in right groin. RN applying pressure to stabilize. recheck hgb at 1800. 11. DVT prophylaxis with subcutaneous Heparin, renally dosed. DISPOSITION: Weaning trial per cafeteria or lunchroom checker .swallow eval. VS, I&O, 24H, Fishbone Vital Signs/I&O Vital Signs Date Time Temp Pulse Resp B/P (MAP) Pulse Ox O2 Delivery O2 Flow Rate FiO2 11/07/20 09:00 67 141/65 (90) 94 Aerosol Mask 8.0 35 11/07/20 08:00 99.8 20 I&O- Last 24 Hours up to 6 AM 11/07/20 06:00 Intake Total 2319.2 ml Output Total 2525 ml Balance -205.8 ml Laboratory Data 24H LABS Laboratory Tests 2 11/06/20 10:36: Blood Gas Bicarbonate Standard 24.7, Arterial Blood pH 7.414, Arterial Blood Partial Pressure CO2 39.5, Arterial Blood Partial Pressure O2 105.8H, Arterial Blood Total CO2 25.9, Arterial Blood HCO3 24.7, Arterial Blood Base Excess 0.2, Arterial Blood Oxygen Saturation 97.4 11/06/20 11:16: Bedside Glucose (Misc Panel) 122H 11/06/20 13:57: Prothrombin Time 13.8, Prothromb Time International Ratio 1.04, Activated Partial Thromboplast Time 33.5, Fibrinogen 540H, D-Dimer, Quantitative 3001.43H 11/06/20 16:50: Bedside Glucose (Misc Panel) 188H 11/06/20 18:02: Anion Gap 4L, Glomerular Filtration Rate 48.2L, Calcium Level 7.6L 11/06/20 23:53: Bedside Glucose (Misc Panel) 87 11/07/20 04:34: Anion Gap 6L, Glomerular Filtration Rate 52.6L, Calcium Level 7.6L, Immature Granulocyte % (Auto) 0.9, Neutrophils (%) (Auto) 77.2H, Lymphocytes (%) (Auto) 9.6L, Monocytes (%) (Auto) 7.3, Eosinophils (%) (Auto) 4.8H, Basophils (%) (Auto) 0.2, Neutrophils # (Auto) 8.9H, Lymphocytes # (Auto) 1.1L, Monocytes # (Auto) 0.8, Eosinophils # (Auto) 0.6H, Basophils # (Auto) 0.0, Nucleated Red Blood Cells % (auto) 0.0 11/07/20 05:40: Blood Gas Bicarbonate Standard 24.9, Arterial Blood pH 7.410, Arterial Blood Pa rtial Pressure CO2 40.5, Arterial Blood Partial Pressure O2 124.0H, Arterial Blood Total CO2 26.3, Arterial Blood HCO3 25.1, Arterial Blood Base Excess 0.4, Arterial Blood Oxygen Saturation 98.3 11/07/20 06:00: Bedside Glucose (Misc Panel) 165H 11/07/20 09:36: Blood Gas Bicarbonate Standard 26.9H, Arterial Blood pH 7.457H, Arterial Blood Partial Pressure CO2 38.7, Arterial Blood Partial Pressure O2 81.2, Arterial Blood Total CO2 27.9, Arterial Blood HCO3 26.7H, Arterial Blood Base Excess 2.7H, Arterial Blood Oxygen Saturation 95.9 CBC/BMP Laboratory Tests 11/06/20 13:57 11/06/20 18:02 11/07/20 04:34 Microbiology Microbiology 11/04/20 Gram Stain - Final, Resulted 11/04/20 Sputum Culture - Preliminary, Resulted Staphylococcus Aureus Yeast Like Organism 11/03/20 Blood Culture - Preliminary, Resulted No Growth after 72 hours. All specime... 11/03/20 Blood Culture - Preliminary, Resulted No Growth after 72 hours. All specime... 11/03/20 Urine Culture - Final, Complete MAYTE JONES MD Nov 07, 2020 10:18
--- NOTE | 2020-11-07 11:06 | CCN ---
CRITICAL CARE NOTE DATE: 11/07/2020 SUBJECTIVE: The patient was seen at bedside rounds in the intensive care unit (ICU) this morning. The patient is resting comfortably in bed without any acute distress. He is mechanically ventilated and sedated currently on synchronized intermittent mandatory ventilation (SIMV) with pressure support with settings of tidal volume 450, PEEP of 5, respiration 15, FiO2 of 35%, saturating at 98%. Overnight, he did not have any acute events and was afebrile overnight with Tmax 99.5 F. Over 24 hours, the patients ins and outs were intake of about 2.9 liters, output about 3 liters with a net negative of about approximately 80 mL. He had about 300 mL of bilious output from his orogastric (OG) tube. This morning, his Trialysis catheter was pulled and pressure was held over the area for five minutes. He did experience bleeding; however, a sandbag was placed over the area for more pressure and his bleeding was controlled thereafter. Again this morning, we attempted sedation vacation, and patient was able to follow commands, including opening his mouth, sticking out his tongue on command, as well as moving all extremities on command. REVIEW OF SYSTEMS: Cannot be assessed due to patient's mentation and intubation status. OBJECTIVE: VITAL SIGNS: Temperature 99.0 F, heart rate 79, respirations 19, blood pressure 122/59 with a mean arterial pressure (MAP) of 80, saturating 97% on 35% FiO2. GENERAL: Patient is resting comfortably without any acute distress. He is able to follow all commands with sedation vacation. NEUROLOGIC: The patient has two beats of clonus bilaterally, Positive upgoing toes bilaterally. No fasciculations or tremors witnessed HEENT: Sclerae clear, anicteric. Pupils are reactive to light and symmetrical. His mucous membranes are dry. There is some residual dried blood outside his nares. Tongue is midline. NECK: There is no tracheal deviation or mass palpated. No significant adenopathy appreciated. CARDIAC: Normal S1, S2. There is no murmur, gallop or rub. No peripheral edema. Pedal pulses 2+ appreciated. Unable to appreciate any jugular venous distention (JVD). PULMONARY: He has some coarse ventilator breath sounds, but I did not appreciate any wheezes, crackles, rhonchi or rales. There is no dullness to percussion. There is no traction or accessory muscle use. ABDOMEN: Soft, nondistended. Normal bowel sounds. Can not appreciate any significant organomegaly. No apparent masses or hernias appreciated. EXTREMITIES: There is no bruising, wounds or clubbing appreciated. MUSCULOSKELETAL: The patient does not seem to have any muscle wasting. Range of motion cannot be assessed due to mentation. LABORATORY FINDINGS: Patient had a white count of 11.5, hemoglobin 9.3, hematocrit 27.6, platelets 98. Sodium 140, potassium 3.7, chloride 108, bicarbonate 26, BUN 21, creatinine 1.52. MICROBIOLOGY: Blood cultures times two: No growth. Urine culture shows no growth. Gram stain sputum culture final report showed moderate white count with few yeast-like organisms from the gram stain. The sputum culture also shows yeast-like organisms (heavy). IMAGING: Chest x-ray from today 11/07/20 shows endotracheal (ET) tube and nasogastric (NG) tube in stable, satisfactory position. There is a left lower lobe/retrocardiac consolidation, slightly more confluent than prior examination. There are also bibasilar interstitial infiltrates that are slightly increased. ASSESSMENT AND PLAN: This is a 45-year-old gentleman with past medical history significant for type 1 diabetes, uncontrolled on home medication regimen, with diabetic neuropathy and hypothyroidism, who was transferred to [facility] emergency room (ER) from [facility] because of severe diabetic ketoacidosis and aneuric acute renal failure. The patient was having worsening nausea and vomiting that started about five days ago, which has progressively gotten worse. He also had increased confusion and was thereafter brought to [place] to be further assessed. He was found to be in anion gap metabolic acidosis from severe diabetic ketoacidosis (DKA), as well as acute renal failure with a creatinine of 4.7. He was also found to have leukocytosis, as well as a lower lobe opacity on radiographs, suspicious for pneumonia. The patient was admitted to the ICU for further assessment and management. 1. Neurological: The patient is intubated, sedated and mechanically ventilated, currently on synchronized intermittent mandatory ventilation (SIMV) with pressure support of 10, with settings of tidal volume 450, PEEP of 5, respiration 15, FiO2 of 35%, saturating at 97%. The patient had a sedation vacation and was able to follow all commands this morning, including opening his eyes, moving all extremities. Again, patient has upgoing toes bilaterally and had two beats of clonus bilaterally. I did not appreciate any fasciculations or tremors or seizure activity. CT head did not show any intracranial abnormalities. It's noted that [facility] has ordered an EEG for further assessment. 2. Cardiac: The patient is able to maintain a mean arterial pressure (MAP) of greater than 65 without any pressors. This morning, his blood pressure is 122/51. We will continue to monitor his blood pressure closely. 3. Pulmonary: Patient's arterial blood gas (ABG) this morning, 11/07/2020: pH 7.4/40.5/124% on FiO2 of 35% satting 96%. Patient was put on a spontaneous breathing trial and he was able to follow all commands. His secretions have lightened and we will attempt to extubate him this morning. I will order for a repeat ABG an hour after extubation. Will transition him to aerosol mask 40% to titrate his O2 to >92%. We will continue with chest x-rays as needed. 4. Nephrology: The patient had net negative urine output of about 80 mL. The patient is status post continuous renal replacement therapy (CRRT), day #3 now. His renal function continues to improve. BUN and creatinine today shows 04/03.52. Nephrology has been consulted and appreciate their recommendations. 5. Infectious disease: The patient's chest x-ray today still shows a left lower/retrocardiac opacity. His methicillin-resistant Staphylococcus aureus (MRSA) is negative. His gram stain showed moderate WBCs with yeast-like organisms and preliminary sputum culture shows heavy yeast-like organisms, for which we have started Diflucan 200 mg daily. He remains on Zosyn (day #3). Patient's right Trialysis catheter was pulled this morning with some bleeding, but with sandbag for pressure was able to be controlled. Patient still has a Carver in place with urine clear of pus. 6. Gastrointestinal/endocrine: Patient is status post (severe) diabetic ketoacidosis. Currently, he is transitioned to subcutaneous insulin with D5W for fluids. Will attempt for extubation as well as remove OG tube today. Gastrointestinal (GI) prophylaxis with Protonix. Continue Synthroid for hypothyroidism. 7. Hematology: The patient does have thrombocytopenia, likely in the setting of critical illness and sepsis. His platelets this morning did improve from yesterday, currently at 98. I will defer to primary team for management of his thrombocytopenia. He is on heparin for deep venous thrombosis (DVT) prophylaxis. 8. Deep venous thrombosis (DVT) prophylaxis with heparin. 9. CODE STATUS: FULL CODE. I, Dr. Eagle Day, was physically present for the entire interview and examination. My physical examination agrees with the above. I agree with the above assessment and plan. MTDD
[2020-11-07] MEDS ORDERED: IPRATROPIUM 0.5MG/ALBUTEROL 2.5MG INH SOL UD 3ML (DUONEB) NEB PRN (13:00)
[2020-11-07] MEDS: D5W 1,000 ML IV SCH (14:38)
[2020-11-07] MEDS: FLUCONAZOLE 200 MG in IV 1 EA IV SCH (14:39)
--- NOTE | 2020-11-07 20:14 | IPN ---
PROGRESS NOTE DATE: 11/07/2020 SUBJECTIVE: Julio is seen and examined this morning at the bedside. He was extubated today. He did not pass his swallow evaluation. He is nothing by mouth (n.p.o.). He continues on low-dose IV fluid (D5W at 40 ml an hour). He is renal recovery. He is able to tell me his name and he follows simple commands. VITAL SIGNS: Temperature 98.5, pulse 55, respiratory rate 20, blood pressure 139/72, saturating 97% on room air. Intake yesterday was 2.8 liters. Urine output yesterday was 2.9 liters. Weight in the bed scale today is 81.1 kg. General: The patient is seen lying in bed, awake and alert, oriented to person and followed simple questions and followed simple commands. Move all extremities on command. Makes eye contact. Tongue is moist. There is some dry blood around his nose. Heart sounds are bradycardiac. S1, S2. There is trace pedal edema. There is symmetric air movement. No crackle or rale. He is comfortable on room air. Abdomen is soft and nontender. Genitourinary shows that his dialysis catheter has been removed. He still has a Carver catheter. Extremities: There is some mild foot edema. There is no other edema. He moves all four extremities on commands. He is able to tell me his name and he answers correctly when I ask him to tell me how many fingers I was holding up. LABORATORY DATA: Sodium 140, potassium 3.7, bicarbonate 26, BUN 21, creatinine 1.5, glucose 161, hemoglobin 9.3, white count 11.5, platelets 98. Chest x-ray this morning shows left lower lobe consolidation. INPATIENT MEDICATIONS: He was on D5W at 40 ml an hour. He continues on IV Diflucan and IV Zosyn. His medications are unchanged as compared to yesterday with the exception that is off of sedatives. PROBLEMS: 1. Acute nonoliguric kidney injury while in renal recovery. The patient initially requires continuous renal replacement therapy (CRRT) in the setting of severe diabetic ketoacidosis and sepsis. His CRRT was stopped on Thursday evening. He has been on renal recovery since then. He is nothing by mouth (n.p.o.). He did not pass the swallow evaluation. I am continuing him on D5W at a low rate of 40 ml an hour. IV fluids can be stopped once the patient is on a diet. 2. Status post hypernatremia. Sodium level has improved nicely with hypotonic fluids. Continue D5W at 40 an hour until the patient is started on a diet. We are keeping an eye on his fingerstick as well given that he was very recently in severe diabetic ketoacidosis. 3. Thrombocytopenia. Platelet count has improved and the patient is no longer on pharmacologic deep venous thrombosis (DVT) prophylaxis. 4. Anemia. Hemoglobin is down to 9.3 and I will get iron studies.
[2020-11-07] MEDS ORDERED: KCL 20MEQ IN D5W 1000ML 1,000 ML IV SCH (21:45)
[2020-11-08] VITALS: BP 134/73
[2020-11-08] MEDS: HumaLOG INSULIN (NovoLOG) PER UNIT SC SCH ×4 (00:41→18:00)
[2020-11-08] MEDS: PIPERACILLIN/TAZOBACTAM SOD 3.375 GM in D5W MINI-BAG PLUS 50 ML IV SCH ×4 (00:41→18:56)
[2020-11-08 02:00] VITALS: BP 144/76
[2020-11-08 04:00] VITALS: BP 134/66
[2020-11-08 05:27] LABS: BASO % 0.3 % (0.0-1.0); EOS # 0.6 10^3/uL (0.0-0.5); EOS % 6.5 % (0.0-3.0); HEMATOCRIT 29.3 % (42.0-52.0); HEMOGLOBIN 9.8 g/dl (13.5-17.5); LYMPH # 1.3 10^3/uL (1.5-5.0); LYMPH % 14.6 % (24.0-44.0); MEAN CORPUSCULAR HEMOGLOBIN 33.2 pg (27.0-33.0); MEAN CORPUSCULAR HGB CONC 33.4 g/dl (32.0-36.5); MEAN CORPUSCULAR VOLUME 99.3 fl (80.0-96.0); MONO # 1.2 10^3/uL (0.0-0.8); MONO % 13.1 % (2.0-8.0); NEUTROPHILS # 5.8 10^3/uL (1.5-8.5); NEUTROPHILS % 63.4 % (36.0-66.0); PLATELET COUNT, AUTOMATED 138 10^3/uL (150-450); RED BLOOD COUNT 2.95 10^6/uL (4.30-6.10); WHITE BLOOD COUNT 9.1 10^3/uL (4.0-10.0)
[2020-11-08 06:00] LABS: BLOOD UREA NITROGEN 20 MG/DL (7-18); CALCIUM LEVEL 7.7 MG/DL (8.5-10.1); CARBON DIOXIDE LEVEL 24 MEQ/L (21-32); CHLORIDE LEVEL 105 MEQ/L (98-107); CREATININE FOR GFR 1.08 MG/DL (0.70-1.30); FERRITIN 845 NG/ML (26-388); GLOMERULAR FILTRATION RATE > 60.0 (>60); GLUCOSE, FASTING 178 MG/DL (70-100); IRON (FE) 35 UG/DL (65-175); PERCENT SATURATION 31.5 % (19.7-50.0); POTASSIUM SERUM 3.5 MEQ/L (3.5-5.1); SODIUM LEVEL 139 MEQ/L (136-145); TOTAL IRON BINDING CAPACITY 111 UG/DL (250-450)
[2020-11-08 06:08] LABS: ABG BASE EXCESS -1.5 (-2.0-2.0); ABG HCO3 19.4 MEQ/L (22.0-26.0); ABG O2 SATURATION 98.2 % (95.0-99.0); ABG PARTIAL PRESSURE CO2 22.1 mmHg (35.0-45.0); ABG PARTIAL PRESSURE O2 106.6 mmHg (75.0-100.0); ABG STANDARD HCO3 23.2 MEQ/L (22.0-26.0); ABG TOTAL CO2 20.1 MEQ/L (22.0-29.0); ABG pH (ARTERIAL) 7.561 UNITS (7.350-7.450)
[2020-11-08] MEDS: BUDESONIDE 0.5 MG/2 ML INHALATION SUSPENSION INH SCH ×2 (07:04→19:34)
[2020-11-08] MEDS: FORMOTEROL FUMARATE 20 MCG/2 ML INHALATION SOLUTION (PERFOROMIST) INH SCH ×2 (07:04→19:34)
--- NOTE | 2020-11-08 07:55 | REP ---
INDICATION: Resp failure. COMPARISON: Comparison chest x-ray November 07, 2020. TECHNIQUE: Portable upright AP chest radiograph. FINDINGS: . Today's exposure is made with the lungs in a lesser level of inspiration. In spite of this, the left lower lobe infiltrate appears a little more extensive. Increased markings are noted in the right base as well. Cardiomediastinal silhouette is unremarkable. There are bibasilar infiltrates visible on today's radiograph. IMPRESSION: Bibasilar infiltrates consistent with pneumonia. Somewhat more extensive today than on yesterday's radiograph.. <Electronically signed by Nicolas Pike > 11/08/20 0759
[2020-11-08 08:00] VITALS: BP 165/77
[2020-11-08] MEDS: LEVEMIR (INSULIN DETEMIR) 1 UNITS/0.01ML SC SCH (08:24)
[2020-11-08] MEDS: PANTOPRAZOLE 40MG VIAL (C9113 PER 1) IV SCH ×2 (08:24→20:27)
[2020-11-08] MEDS: LEVOTHYROXINE 100MCG (0.1MG) VIAL IV SCH (08:25)
--- NOTE | 2020-11-08 10:31 | IPNPDOC ---
Date Seen The patient was seen on 11/08/20. Progress Note SUBJECTIVE: Patient was successfully extubated yesterday on 11/07/2020, but failed the swallow evaluation with increased risk of aspiration. Patient has been kept nothing by mouth overnight and kept on intravenous fluids. This morning patient is anxious to go home with the at the bedside. He says that he continues to have cough productive of white sputum. Still quite weak. No nausea or vomiting. Repeat swallow eval today. Recommended mechanical soft diet but still Consistent Carbohydrate. He Is Otherwise Medically Stable. Has Had No Issues on Telemetry. Urine Output Has Been Adequate. Simpson Catheter Has Been Discontinued. He Denies Any Fever, Chills Overnight and Denies Any Chest Pain, Pressure, Tightness, or Worsening Shortness of Breath Patient is otherwise stable to be transferred to medical surgical floor. No telemetry needed OBJECTIVE: VITALS: see below GENERAL: no pallor no icterus no distress HEENT: Dry mucous membranes. NECK: No JVD or thyromegaly. LUNGS: dimished, bibasilar crackles HEART: S1, S2, sinus rhythm. ABDOMEN: Soft, nontender, non-distended, positive bowel sounds, simpson dced EXTREMITIES: No cyanosis, clubbing or pitting edema. Laboratory data, imaging studies, microbiology have been reviewed. ASSESSMENT/PLAN: 45-year-old male with history of dyslipidemia, depression, anxiety, hypothyroidism, restless leg, COPD not oxygen or steroid-dependent, insomnia, cleft palate repair with skin grafting, type 1 diabetes with diabetic retinopathy and chronic pain transferred from [facility] for DKA, high anion gap metabolic acidosis, aneuric acute kidney injury, acute metabolic encephalopathy and aspiration pneumonia requiring CRRT. 1. Acute respiratory failure secondary to aspiration pneumonia. Is still on IV Zosyn. Status post intubation, mechanical ventilation, extubated, in 11/07/2020 2. Aneuric acute kidney injury, status post CRRT, currently has adequate urine output with improving creatinine managed by nephrology.dialysis cath removed with acute blood loss. stable urine output. Simpson catheter discontinued. Still on IV fluids until resumes an oral diet 3. Acute metabolic encephalopathy secondary to DKA, acidosis, uremia. awake today . ct head negative despite fasciculations and positive b/l addie nski. 4. DKA resolved, currently on Lispro to be changed to every before meals and at bedtime once resumes an oral diet and Levemir insulin. Fingersticks every before meals at bedtime 5. Aspiration pneumonia. MRSA negative, discontinued Vancomycin. Currently on Zosyn. Pending urine Legionella antigen and Strep pneumonia. Sputum culture shows yeast-like organism, blood culture is negative. 6. Hypothyroidism, on IV Synthroid, 50% of PO dose. once resumes po intake, change to po At twice a dose of IV. 7. COPD, on DuoNeb, Budesonide, Perforomist. 8. Chronic back pain. 9. B/L babinski-repeat ct head. unable to get MRI due tometal from previous palate surgeries, Abnormal creatinine will not permit CT angio Head. 10. Acute blood loss due increased bleeding form dialysis cath which has been discontinued in right groin. Resolved 11. DVT prophylaxis with subcutaneous Heparin, renally dosed. Disposition medically stable for medical surgical floor. No telemetry needed. PT, OT. A RU consult VS, I&O, 24H, [facility] Vital Signs/I&O Vital Signs Date Time Temp Pulse Resp B/P (MAP) Pulse Ox O2 Delivery O2 Flow Rate FiO2 11/08/20 08:00 97.6 52 18 165/77 (106) 97 Room Air 11/07/20 09:00 8.0 35 I&O- Last 24 Hours up to 6 AM 11/08/20 06:00 Intake Total 1484.8 ml Output Total 2295 ml Balance -810.2 ml Laboratory Data 24H LABS Laboratory Tests 2 11/07/20 12:22: Bedside Glucose (Misc Panel) 142H 11/07/20 18:05: Bedside Glucose (Misc Panel) 141H 11/08/20 00:31: Bedside Glucose (Misc Panel) 143H 11/08/20 05:09: Immature Granulocyte % (Auto) 2.1, Neutrophils (%) (Auto) 63.4, Lymphocytes (%) (Auto) 14.6L, Monocytes (%) (Auto) 13.1H, Eosinophils (%) (Auto) 6.5H, Basophils (%) (Auto) 0.3, Neutrophils # (Auto) 5.8, Lymphocytes # (Auto) 1.3L, Monocytes # (Auto) 1.2H, Eosinophils # (Auto) 0.6H, Basophils # (Auto) 0.0, Nucleated Red Blood Cells % (auto) 0.0, Anion Gap 10, Glomerular Filtration Rate > 60.0, Calcium Level 7.7L, Iron Level 35L, Total Iron Binding Capacity 111L, Transferrin % Saturation 31.5, Ferritin 845H 11/08/20 05:42: Bedside Glucose (Misc Panel) 177H 11/08/20 05:51: Blood Gas Bicarbonate Standard 23.2, Arterial Blood pH 7.561H, Arterial Blood Partial Pressure CO2 22.1L, Arterial Blood Partial Pressure O2 106.6H, Arterial Blood Total CO2 20.1L, Arterial Blood HCO3 19.4L, Arterial Blood Base Excess - 1.5, Arterial Blood Oxygen Saturation 98.2 CBC/BMP Laboratory Tests 11/08/20 05:09 Microbiology Microbiology 11/04/20 Gram Stain - Final, Complete 11/04/20 Sputum Culture - Final, Complete Staphylococcus Aureus Yeast Like Organism 11/03/20 Blood Culture - Preliminary, Resulted No Growth after 72 hours. All specime... 11/03/20 Blood Culture - Preliminary, Resulted No Growth after 72 hours. All specime... 11/03/20 Urine Culture - Final, Complete MAYTE JONES MD Nov 08, 2020 10:26
[2020-11-08] MEDS: FLUCONAZOLE 200 MG in IV 1 EA IV SCH (13:19)
[2020-11-08 14:00] VITALS: BP 137/67
[2020-11-08] MEDS: DEXTROSE 50% 50 ML SYRINGE IV PRN (16:39)
[2020-11-08] MEDS: ACETAMINOPHEN 325 MG/10.15 ML UDC PO PRN (20:28)
[2020-11-08 22:00] VITALS: BP 153/65
[2020-11-09] MEDS: PIPERACILLIN/TAZOBACTAM SOD 3.375 GM in D5W MINI-BAG PLUS 50 ML IV SCH ×4 (00:35→18:24)
[2020-11-09] MEDS: HumaLOG INSULIN (NovoLOG) PER UNIT SC SCH ×4 (00:36→18:23)
[2020-11-09] MEDS: ACETAMINOPHEN 325 MG/10.15 ML UDC PO PRN (02:41)
[2020-11-09 06:00] VITALS: BP 148/72
[2020-11-09 06:42] LABS: HEMATOCRIT 31.6 % (42.0-52.0); HEMOGLOBIN 10.8 g/dl (13.5-17.5); MEAN CORPUSCULAR HEMOGLOBIN 33.5 pg (27.0-33.0); MEAN CORPUSCULAR HGB CONC 34.2 g/dl (32.0-36.5); MEAN CORPUSCULAR VOLUME 98.1 fl (80.0-96.0); PLATELET COUNT, AUTOMATED 224 10^3/uL (150-450); RED BLOOD COUNT 3.22 10^6/uL (4.30-6.10); WHITE BLOOD COUNT 8.4 10^3/uL (4.0-10.0)
[2020-11-09 07:00] LABS: BLOOD UREA NITROGEN 17 MG/DL (7-18); CALCIUM LEVEL 8.2 MG/DL (8.5-10.1); CARBON DIOXIDE LEVEL 21 MEQ/L (21-32); CHLORIDE LEVEL 100 MEQ/L (98-107); GLOMERULAR FILTRATION RATE > 60.0 (>60); GLUCOSE, FASTING 278 MG/DL (70-100); POTASSIUM SERUM 3.5 MEQ/L (3.5-5.1); SODIUM LEVEL 136 MEQ/L (136-145)
[2020-11-09] MEDS: BUDESONIDE 0.5 MG/2 ML INHALATION SUSPENSION INH SCH ×2 (07:04→20:00)
[2020-11-09] MEDS: FORMOTEROL FUMARATE 20 MCG/2 ML INHALATION SOLUTION (PERFOROMIST) INH SCH ×2 (07:04→20:00)
[2020-11-09 07:13] LABS: ANISOCYTOSIS 1+; EOSINOPHILS 2 % (0-3); LYMPHOCYTES 18 % (16-44); MONOCYTES 15 % (0-5); NEUTROPHILS 65 % (28-66); PLATELET ESTIMATE NORMAL (NORMAL); POIKILOCYTOSIS 1+; POLYCHROMASIA 1+
--- NOTE | 2020-11-09 07:20 | IPN ---
PROGRESS NOTE DATE: 11/08/2020 SUBJECTIVE: Patient is seen and examined this morning at the bedside. He is now on a diet (mechanical soft). He has no complaints. His renal function has recovered to baseline. He wants to go home. His IV fluids are being discontinued. He denies any shortness of breath, chest pain or nausea. OBJECTIVE: VITAL SIGNS: Temperature is 97.9, pulse is 60, respiratory rate is 16, blood pressure is 137/67, saturating 98% on room air. INTAKE AND OUTPUT: Intake yesterday was 1.4 liters, urine output yesterday was 2.2 liters. Weight on the bed scale today is not recorded. GENERAL: Patient is seen awake, alert and in no distress. Makes eye contact. HEENT: Tongue is dry. NECK: Supple. There is no jugular venous distention. HEART: Heart sounds are regular, S1 and S2. There is no significant leg edema. LUNGS: Diminished breath sounds bilaterally but no crackles or rales. ABDOMEN: Soft and nontender. His Carver catheter has been discontinued. SKIN: Warm and dry. LABORATORY DATA: Sodium 139, potassium is 3.5, bicarbonate 24, BUN 20, creatinine 1.0, glucose is 178, transferrin saturation 31%, hemoglobin 9.8. INPATIENT MEDICATIONS: I stopped his IV fluids. His remainder of medications are unchanged as compared to yesterday. Chest x-ray done this morning: Bibasilar infiltrate consistent with pneumonia. PROBLEMS: 1. Status post acute renal failure. The patient initially required CRRT in the setting of severe diabetic ketoacidosis and sepsis. CRRT was stopped within about 24 hours of initiation. He has been in renal recovery since then. Creatinine has now returned to baseline. He was started on a diet today so I am stopping the IV fluids. 2. Thrombocytopenia, platelet counts continue to improve. 3. Hypokalemia, he received IV potassium supplementation. 4. Status post acute respiratory failure secondary to aspiration pneumonia. The patient is much improved. He was extubated yesterday. He is on room air today. Antibiotics are managed by the primary service. 5. Lines. He has no longer has a dialysis catheter and he no longer has a Carver catheter. 6. Disposition: Patient has improved from a nephrology point of view. His renal injury has recovered. His creatinine is 1.0. He is now on a diet. I have stopped IV fluids. His electrolytes are acceptable. His acid base status is also acceptable. Nephrology is signing off. Please re-consult as needed.
--- NOTE | 2020-11-09 08:21 | IPN ---
PROGRESS NOTE DATE: 11/09/2020 SUBJECTIVE: According to the patient's who is present at the bedside, the patient has had no appetite and only drank water and ice chips. He denies any fever or chills overnight. He has had bradycardia, ventricular rate of 48, blood pressure 130 to 150, asymptomatic while he was sleeping. Patient has had no other issues. Overnight, urine output was 950 yesterday, input of 990. OBJECTIVE: VITAL SIGNS: Temperature 99.3, pulse 65, respiratory rate 21, blood pressure 148/72, 100% on room air. GENERAL: Awake, alert and oriented to himself, answering questions appropriately. HEENT: No pallor, icterus or jaundice. NECK: No JVD or thyromegaly. No cervical lymphadenopathy. LUNGS: Diminished with bibasilar crackles. HEART: S1 and S2, sinus rhythm. Episodes of sinus bradycardia. ABDOMEN: Soft, nontender and nondistended. Positive bowel sounds. EXTREMITIES: No cyanosis or clubbing. LABORATORY DATA/IMAGING STUDIES/MICROBIOLOGY: Have been reviewed. ASSESSMENT AND PLAN: A 45-year-old male admitted on 11/03/2020 with a history of dyslipidemia, depression, anxiety, hypothyroidism, restless legs, COPD, not oxygen or steroid dependent, cleft palate repair with skin grafting, Type 1 diabetes with retinopathy, admitted for DKA, metabolic acidosis, anuric acute kidney injury, metabolic encephalopathy and aspiration pneumonia requiring CRRT. Patient had been extubated successfully on 11/07/2020. Acute issues are: 1. Acute hypoxic respiratory failure secondary to aspiration pneumonia. 2. Aspiration pneumonia. 3. Acute kidney injury status post CRRT. 4. Acute metabolic encephalopathy secondary to uremia, DKA acidosis. 5. DKA, resolved. 6. Type 1 diabetes with neuropathy. 7. Debility. 8. COPD. 9. Hypothyroidism. 10.Chronic back pain. 11.Acute blood loss due to bleeding from the dialysis catheter which has been discontinued. PLAN: Continue with present management for now. Might transition to oral antibiotics. Once p.o. intake has improved, decreased Levemir insulin to 10 units sub q. daily until patient is taking more food, change to p.o. Protonix b.i.d. and Synthroid at 100 mcg p.o. Continue with acute rehab services.
--- NOTE | 2020-11-09 08:58 | REP ---
INDICATION: Resp failure COMPARISON: 11/08/2020 TECHNIQUE: Portable AP view of the chest FINDINGS: The mediastinum and cardiac silhouette are stable and within normal limits for portable technique. The lung hudson again demonstrate perihilar and bibasilar airspace disease (left greater than right). Skeletal structures are intact. IMPRESSION: Bibasilar infiltrates (left greater than right). No significant change from prior examination. <Electronically signed by William Barfield > 11/09/20 [id number]
[2020-11-09] MEDS: LEVEMIR (INSULIN DETEMIR) 1 UNITS/0.01ML SC SCH (09:50)
[2020-11-09] MEDS: PANTOPRAZOLE 40MG TAB (PROTONIX) PO SCH (09:50)
[2020-11-09] MEDS: LEVOTHYROXINE 100MCG TABLET (0.1MG) PO SCH (09:51)
[2020-11-09] MEDS ORDERED: GI COCKTAIL 50ML BTL(HYOSCYAMINE/MAALOX/LIDOCAINE VISCOUS)(1:3:1) PO ONE (10:00)
[2020-11-09] MEDS: SUCRALFATE 1 GM TAB PO SCH ×3 (13:05→21:16)
[2020-11-09] MEDS: FLUCONAZOLE 200 MG in IV 1 EA IV SCH (13:07)
[2020-11-09 14:00] VITALS: BP 136/61
[2020-11-09] MEDS ORDERED: GI COCKTAIL 50ML BTL(HYOSCYAMINE/MAALOX/LIDOCAINE VISCOUS)(1:3:1) PO PRN (14:00)
[2020-11-09 21:39] VITALS: BP 123/59
[2020-11-09 22:00] VITALS: BP 123/59
[2020-11-10] MEDS: PIPERACILLIN/TAZOBACTAM SOD 3.375 GM in D5W MINI-BAG PLUS 50 ML IV SCH ×3 (00:09→12:30)
[2020-11-10 06:22] VITALS: BP 138/68
[2020-11-10] MEDS: LEVOTHYROXINE 100MCG TABLET (0.1MG) PO SCH (06:24)
[2020-11-10] MEDS: HumaLOG INSULIN (NovoLOG) PER UNIT SC SCH ×3 (07:00→12:30)
[2020-11-10 07:05] LABS: BASO # 0.1 10^3/uL (0.0-0.2); BASO % 0.6 % (0.0-1.0); EOS # 0.4 10^3/uL (0.0-0.5); EOS % 4.8 % (0.0-3.0); HEMATOCRIT 31.1 % (42.0-52.0); HEMOGLOBIN 10.8 g/dl (13.5-17.5); LYMPH # 1.7 10^3/uL (1.5-5.0); LYMPH % 19.7 % (24.0-44.0); MEAN CORPUSCULAR HEMOGLOBIN 33.8 pg (27.0-33.0); MEAN CORPUSCULAR HGB CONC 34.7 g/dl (32.0-36.5); MEAN CORPUSCULAR VOLUME 97.2 fl (80.0-96.0); MONO # 1.1 10^3/uL (0.0-0.8); MONO % 13.4 % (2.0-8.0); NEUTROPHILS # 4.9 10^3/uL (1.5-8.5); NEUTROPHILS % 56.8 % (36.0-66.0); PLATELET COUNT, AUTOMATED 306 10^3/uL (150-450); WHITE BLOOD COUNT 8.5 10^3/uL (4.0-10.0)
[2020-11-10] MEDS: BUDESONIDE 0.5 MG/2 ML INHALATION SUSPENSION INH SCH (07:22)
[2020-11-10] MEDS: FORMOTEROL FUMARATE 20 MCG/2 ML INHALATION SOLUTION (PERFOROMIST) INH SCH (07:22)
[2020-11-10] MEDS ORDERED: DIFL150T PO (07:29)
[2020-11-10] MEDS ORDERED: SUCR1TA PO (07:29)
[2020-11-10] MEDS ORDERED: LEVO750T13 PO (07:29)
[2020-11-10] MEDS ORDERED: PANT40TA29 PO (07:29)
[2020-11-10] MEDS ORDERED: BACI1CAP PO (07:29)
[2020-11-10 07:30] LABS: BLOOD UREA NITROGEN 14 MG/DL (7-18); CALCIUM LEVEL 7.9 MG/DL (8.5-10.1); CARBON DIOXIDE LEVEL 25 MEQ/L (21-32); CHLORIDE LEVEL 99 MEQ/L (98-107); CREATININE FOR GFR 0.86 MG/DL (0.70-1.30); GLOMERULAR FILTRATION RATE > 60.0 (>60); GLUCOSE, FASTING 196 MG/DL (70-100); POTASSIUM SERUM 3.4 MEQ/L (3.5-5.1); SODIUM LEVEL 135 MEQ/L (136-145)
[2020-11-10] MEDS ORDERED: DOXY-350 PO (07:39)
--- NOTE | 2020-11-10 07:56 | REP ---
INDICATION: Resp failure COMPARISON: 11/09/2020 TECHNIQUE: Portable AP view of the chest FINDINGS: The mediastinum and cardiac silhouette are stable and within normal limits for portable technique. Right hemithorax is now clear. Left lower lobe airspace disease again noted and relatively similar to prior examination when allowing for variation in technique. No obvious effusion. No pneumothorax. Skeletal structures are stable. IMPRESSION: 1. Left lower lobe airspace disease similar to prior examination. 2. Right hemithorax appears clear. <Electronically signed by William Barfield > 11/10/20 [id number]
[2020-11-10 08:20] LABS: ABG BASE EXCESS 2.3 (-2.0-2.0); ABG HCO3 24.4 MEQ/L (22.0-26.0); ABG O2 SATURATION 98.4 % (95.0-99.0); ABG PARTIAL PRESSURE O2 119.6 mmHg (75.0-100.0); ABG STANDARD HCO3 26.6 MEQ/L (22.0-26.0); ABG TOTAL CO2 25.4 MEQ/L (22.0-29.0); ABG pH (ARTERIAL) 7.529 UNITS (7.350-7.450)
[2020-11-10] MEDS: LEVEMIR (INSULIN DETEMIR) 1 UNITS/0.01ML SC SCH (08:43)
[2020-11-10] MEDS: SUCRALFATE 1 GM TAB PO SCH ×2 (08:43→12:29)
[2020-11-10] MEDS: PANTOPRAZOLE 40MG TAB (PROTONIX) PO SCH (08:43)
--- NOTE | 2020-11-10 11:56 | DSES ---
DISCHARGE SUMMARY DATE OF ADMISSION: 11/03/2020 DATE OF DISCHARGE: 11/10/2020 CONSULTANTS: 1. Clothing Worker, Dr. Suggs, status post CRRT for acute kidney injury due to DKA and sepsis from aspiration pneumonia/Dr. Antoni Baron. 2. Trade Mark Examiner, Dr. Eagle Day, for management of mechanical ventilation and intubation. DISCHARGE DIAGNOSES: 1. Acute hypoxic respiratory failure secondary to aspiration pneumonia. 2. Diabetic ketoacidosis. 3. Sepsis secondary to aspiration pneumonia. 4. Acute kidney injury secondary to sepsis and aspiration pneumonia. 5. Anemia. 6. Acute metabolic encephalopathy secondary to diabetic ketoacidosis (DKA), aspiration pneumonia, and uremia. 7. Acute metabolic encephalopathy. 8. Type 1 diabetes with neuropathy and debility. 9. History of chronic obstructive pulmonary disease (COPD). 10. Hypothyroidism. 11. Chronic back pain. 12. Acute blood loss due to bleeding from the dialysis catheter, which has been discontinued. DISCHARGE MEDICATIONS: 1. Levaquin 750 daily. 2. Protonix 40 daily. 3. Carafate 1 gram a.c. and h.s. 4. Fluconazole 150 daily. 5. Bacid one cap with meals. 6. Atorvastatin 40 daily. 7. Baclofen 20 q.i.d. 8. Bupropion 150 daily. 9. Lexapro 20 b.i.d. 10. Eszopiclone 3 mg q. h.s. 11. Trelegy Ellipta one puff daily. 12. Gabapentin 600 q.i.d. 13. Lantus insulin 25 units subcutaneously b.i.d. 14. Lispro insulin t.i.d. 15. Levothyroxine 100 mcg daily. 16. Ropinirole 0.5 b.i.d. 17. Trazodone 50 mg q. h.s. 18. Doxycycline 100 mg b.i.d. for five days. DISCHARGE INSTRUCTIONS: Follow-up with primary care physician within five days of discharge. HOSPITAL COURSE: This is a 45-year-old male admitted on 11/03/2020, as a transfer from [facility] for severe DKA requiring ICU care. ABG at that time was 7.17, CO2 of 25, acute kidney injury with creatinine of 4.7. The patient had oliguric acute kidney injury and was found to have aspiration pneumonia. The patient was sent to [facility] for further management. Dr. Suggs locomotive engineer electric was consulted. The patient needed CRRT due to oliguric acute kidney injury. The patient was visiting from [place] when he was admitted for diabetic ketoacidosis, admitted to the intensive care unit and placed on insulin drip due to respiratory failure from altered mental status. For metabolic acidosis, uremia, aspiration pneumonia, and DKA, the patient was immediately intubated and mechanically ventilated. Dr. Day managed the patient's ventilator. The patient was started on CRRT through a dialysis catheter right femoral vein. Creatinine improved to a discharge creatinine of 1.08. Dialysis catheter was removed, but had some blood loss with decrease in hemoglobin from admission of 12.1 to discharge of 10.8, not requiring any blood transfusion. Due to aspiration pneumonia, the patient was kept n.p.o. on IV fluids. Nasogastric was placed. He was started on intravenous Zosyn. Sputum culture grew out Staph aureus and yeast-like organism that was sensitive to Bactrim. The patient received Zosyn for five days without a fever and normal white count of 8.5 three days prior to discharge. The patient was started on Diflucan 150 mg daily and remained afebrile with no other issues. After extubation, the patient was transferred to the medical surgical floor and worked with physical therapy. The patient had complaints of sore throat and difficulty swallowing, but had no signs of aspiration. He was initially started on a mechanical soft diet, but advanced to a consistent carbohydrate diet on discharge, which he tolerated well. DISCHARGE PHYSICAL EXAMINATION: VITAL SIGNS: Temperature 98.2, pulse 62, respiratory rate 18, blood pressure 138/68, 97% on room air. GENERAL: Appears disheveled, missing teeth, poor dentition, dental caries. NECK: No JVD or thyromegaly. HEENT: Dry mucous membranes with chapped lips. LUNGS: Diminished with bilateral crackles at the bases. HEART: S1, S2 sinus rhythm with episodes of sinus bradycardia. ABDOMEN: Soft, nontender, and nondistended. EXTREMITIES: No cyanosis, clubbing, or pitting edema. DIAGNOSTIC STUDIES: Laboratory data, microbiology, and imaging studies please see the chart. Time spent on discharge 30 minutes.
--- NOTE | 2020-11-11 11:03 | EEG ---
ELECTROENCEPHALOGRAM DATE: 11/07/2020 REFERRING PHYSICIAN: Dr. Stephanie Luna DIAGNOSIS: Fasciculations, rule out seizure. EEG# [id number] HISTORY: The patient is a 45-year-old man who was admitted to [facility] due to diabetic ketoacidosis and aspiration pneumonia. He has fasciculations and EEG was done to rule out epileptic potential. He is currently taking fluconazole, propofol, Zosyn, etc. TECHNICAL DESCRIPTION: This digital electroencephalogram (EEG) was recorded by 21 scalp, ear, and two electrocardiogram (EKG) electrodes and was reviewed in bipolar and referential montages following reformatting in 10-20 international electrode placement system. INTERPRETATION: The patient was noted to be in awake and drowsy states during this EEG. Resting and awake background rhythm consisted of well-formed posterior dominant rhythm with anterior/posterior gradient comprising of 10 Hz alpha activity measuring 15-30 microvolts in amplitude which was symmetric and reactive to eye opening. Attenuation of posterior dominant rhythm was seen during transition to drowsiness. Stages I and II sleep were reviewed and were symmetric bilaterally. Hyperventilation could not be performed. Photic stimulation remained unremarkable. EKG revealed normal sinus rhythm. No focal, lateralizing, or epileptiform abnormalities were seen. No relevant clinical activity was noted. CONCLUSION: This EEG in awake, drowsy states, stage I and II sleep is within normal limits. [facility]
== END 2020-11-10 14:20 | disposition home or self-care (01) | DRG 720 ==
LOC: EDBD 19:12 → M ICU 19:12 → M MS5PR 11-08 10:09
PROVIDERS: ADMIT Internal Medicine; ATTEND General Practice
PROC: 06HM33Z Insertion of Infusion Device into Right Femoral Vein, Percutaneous Approach (ICD-10-PCS; principal; 2020-11-04)
PROC: 5A1D90Z Performance of Urinary Filtration, Continuous, Greater than 18 hours Per Day (ICD-10-PCS; 2020-11-04)
DX: A41.9 Sepsis, unspecified organism (principal); J96.01 Acute respiratory failure with hypoxia; J69.0 Pneumonitis due to inhalation of food and vomit; N17.8 Other acute kidney failure; G93.41 Metabolic encephalopathy; E10.10 Type 1 diabetes mellitus with ketoacidosis without coma; E10.42 Type 1 diabetes mellitus with diabetic polyneuropathy; E87.1 Hypo-osmolality and hyponatremia; E83.51 Hypocalcemia; E10.65 Type 1 diabetes mellitus with hyperglycemia; E78.5 Hyperlipidemia, unspecified; F41.9 Anxiety disorder, unspecified; F32.9 Major depressive disorder, single episode, unspecified; E03.9 Hypothyroidism, unspecified; Z79.4 Long term (current) use of insulin; Z79.899 Other long term (current) drug therapy; Z88.0 Allergy status to penicillin; Z88.8 Allergy status to other drugs, medicaments and biological substances; J44.9 Chronic obstructive pulmonary disease, unspecified; M54.5 Low back pain; D64.9 Anemia, unspecified; R65.20 Severe sepsis without septic shock